=== PATIENT | female | born 1995 | race Caucasian/White ===

== ENCOUNTER 2023-07-14 12:47 | Inpatient (IN) | payer MEDICAID, SELFPAY ==
[2023-07-14 12:52] VITALS: BP 142/93; PULSE 85; RESP 12; TEMP 36.6; O2SAT 99; BMI 17.9
[2023-07-14 13:24] LABS: Basophils # 0.1 10^3/uL (0.0-0.1); Basophils % 1.7 %; Eosinophils # 0.2 10^3/uL (0.0-0.8); Eosinophils % 2.7 %; Hematocrit 41.8 % (36-47); Lymphocytes # 1.7 10^3/uL (0.8-4.8); Lymphocytes % 27.7 %; Mean Corpuscular HGB Conc 33.7 g/dL (30-55); Mean Corpuscular Hemoglobin 30.1 pg (27-33); Mean Corpuscular Volume 89.3 fl (85-98); Mean Platelet Volume 8.9 fL (7.4-10.4); Monocytes # 0.6 10^3/uL (0.2-0.9); Monocytes % 9.7 %; Neutrophils # 3.45 10^3/uL (1.8-7.7); Neutrophils % 57.9 %; Nucleated Red Blood Cells % 0 %; Platelet Count 322 10^3/cmm (157-399); Red Blood Count 4.68 10^6/uL (3.85-5.65); Red Cell Distribution Width 11.9 % (12.1-15.1); White Blood Count 5.96 10^3/uL (3.29-11.43)
--- NOTE | 2023-07-14 13:27 | ED.C_ITS ---
HPI - Psych 2 General: Chief Complaint: Psychiatric Symptoms Stated Complaint: SI Time Seen by Provider: 07/14/23 12:53 Source: patient Mode of arrival: ambulatory Limitations: no limitations History of Present Illness: 28-year-old female who states that she h as been increasingly paranoid she has been having some delusions and visual hallucinations states she has had no history of this in the past she is also had suicidal thoughts no specific plan she is not on any meds no history of SI in the past. Review of Systems 2 Const: Denies: fever(s) or chills ENMT: Denies: throat pain or dental pain Card: Denies: chest pain Resp: Denies: dyspnea GI: Denies: abdominal pain, nausea, vomiting or diarrhea Musc: Denies: neck pain or back pain Skin/Breast: Denies: rash Neuro: Denies: headache(s) Physical Exam 2 Const: COMMON NORMALS: no acute distress, patient oriented x3 and healthy appearing HENMT: COMMON NORMALS: normocephalic and atraumatic HEAD & SCALP: n ormocephalic and atraumatic Eye: COMMON NORMALS: Equal, round and reactive pupils present and EOMs intact bilaterally PUPIL: Yes Equal, round and reactive pupils present Neck/C-Spine: COMMON NORMALS: full ROM and supple Chest: COMMONS NORMALS: normal inspection of the chest Resp: COMMON NORMALS: normal respiratory effort Cardio: COMMON NORMALS: regular rate, regular rhythm and No murmurs present (Cardio) RATE: regular rate RHYTHM: regular rhythm GI: COMMON NORMALS: Normal to inspection, nondistended, normoactive bowel sounds present, Soft to palpation, non-tender and no masses PALPATION: Yes Soft to palpation Extremity: COMMON NORMALS: normal to inspection and full ROM Neuro: COMMON NORMALS: patient oriented x3, moves all extremities and no focal motor deficits Psych: COMMON NORMALS: mental status grossly normal, Normal thought process present and cooperative ATTITUDE: Yes paranoid THOUGHT PROCESS: Normal thought process present THOUGHT CONTENT: Yes Suicidality present Skin: COMMON NORMALS: no rashes or lesions noted and no wounds GENERAL SKIN EXAM: no rashes or lesions noted Course 2 Vital Signs: Vital signs: Vital Signs Temperature 97.9 F 07/14/23 12:52 Pulse Rate 85 07/14/23 12:52 Respiratory Rate 12 07/14/23 12:52 Blood Pressure 142/93 07/14/23 12:52 Pulse Oximetry 99 07/14/23 12:52 Oxygen Delivery Me thod Room Air 07/14/23 12:52 MDM - Psych Medical Decision Making Patient presents here with suicidal ideations along with acute psychosis. She is quite paranoid here no history of psychiatric issues patient was placed under 96-hour hold I spoke to the psychiatrist and will admit at this time. Medical Records I reviewed the patient's medical records. Lab Data I reviewed the patient's lab results. 07/14/23 13:11 07/14/23 13:11 Laboratory Results WBC 5.96 10^3/uL (3.29-11.43) 07/14/23 13:11 RBC 4.68 10^6/uL (3.85-5.65) 07/14/23 13:11 Hgb 14.10 g/dL (11.27-16.99) 07/14/23 13:11 Hct 41.8 % (36-47) 07/14/23 13:11 MCV 89.3 fl (85-98) 07/14/23 13:11 MCH 30.1 pg (27-33) 07/14/23 13:11 MCHC 33.7 g/dL (30-55) 07/14/23 13:11 RDW 11.9 % (12.1-15.1) L 07/14/23 13:11 Plt Count 322 10^3/cmm (157-399) 07/14/23 13:11 MPV 8.9 fL (7.4-10.4) 07/14/23 13:11 Neut % (Auto) 57.9 % 07/14/23 13:11 Lymph % (Auto) 27.7 % 07/14/23 13:11 Ponce % (Auto) 9.7 % 07/14/23 13:11 Eos % (Auto) 2.7 % 07/14/23 13:11 Baso % (Auto) 1.7 % 07/14/23 13:11 Neut # (Auto) 3.45 10^3/uL (1.8-7.7) 07/14/23 13:11 Lymph # (Auto) 1.7 10^3/uL (0.8-4.8) 07/14/23 13:11 Ponce # (Auto) 0.6 10^3/uL (0.2-0.9) 07/14/23 13:11 Eos # (Auto) 0.2 10^3/uL (0.0-0.8) 07/14/23 13:11 Baso # (Auto) 0.1 10^3/uL (0.0-0.1) 07/14/23 13:11 Nucleated RBC % (auto) 0 % 07/14/23 13:11 Nucleated RBCs # 0.0 /100WBC 07/14/23 13:11 Sodium 137 mmol/L (136-145) 07/14/23 13:11 Potassium 3.9 mmol/L (3.5-5.1) 07/14/23 13:11 Chloride 100 mmol/L (98-107) 07/14/23 13:11 Carbon Dioxide 26 mmol/L (22-29) 07/14/23 13:11 Anion Gap 14.9 (5-19) 07/14/23 13:11 BUN 13 mg/dL (6-20) 07/14/23 13:11 Creatinine 0.7 mg/dL (0.5-0.9) 07/14/23 13:11 GFR Calculation 98.3 mL/min (90-130) 07/14/23 13:11 Glucose 93 mg/dL (65-115) 07/14/23 13:11 Calculated Osmolality 284 mOsm/kg (285-295) L 07/14/23 13:11 Calcium 9.6 mg/dL (8.5-10.5) 07/14/23 13:11 Total Bilirubin 0.4 mg/dL (0.15-1.2) 07/14/23 13:11 AST 14 U/L (0-32) 07/14/23 13:11 ALT 14 U/L (0-33) 07/14/23 13:11 Alkaline Phosphatase 43 U/L (35-105) 07/14/23 13:11 Total Protein 8.1 g/dL (6.6-8.7) 07/14/23 13:11 Albumin 5.1 g/dL (3.5-5.2) 07/14/23 13:11 Globulin 3.0 g/dL (1.3-4.6) 07/14/23 13:11 Salicylates 0.8 mg/dL (3-10) L 07/14/23 13:11 Acetaminophen < 5.0 ug/mL (10-30) L 07/14/23 13:11 Ethyl Alcohol < 10 mg/dL (0-10) 07/14/23 13:11 No radiology studies performed this visit Discharge Plan Discharge Patient Disposition: Admitted As Inpatient Clinical Impression: Depression, Acute psychosis Condition: Stable Coding Level of Care Code ED Ironer Machine for Nimco Jeffrey
[2023-07-14 13:37] LABS: Acetaminophen < 5.0 ug/mL (10-30); Alanine Aminotransferase 14 U/L (0-33); Albumin Level 5.1 g/dL (3.5-5.2); Alcohol Level < 10 mg/dL (0-10); Alkaline Phosphatase 43 U/L (35-105); Anion Gap 14.9 (5-19); Aspartate Amino Transferase 14 U/L (0-32); Blood Urea Nitrogen 13 mg/dL (6-20); Calcium 9.6 mg/dL (8.5-10.5); Carbon Dioxide 26 mmol/L (22-29); Chloride 100 mmol/L (98-107); Glomerular Filtration Rate 98.3 mL/min (90-130); Glucose 93 mg/dL (65-115); Osmolality Calculated 284 mOsm/kg (285-295); Potassium 3.9 mmol/L (3.5-5.1); Salicylate 0.8 mg/dL (3-10); Sodium 137 mmol/L (136-145); Total Bilirubin 0.4 mg/dL (0.15-1.2); Total Protein 8.1 g/dL (6.6-8.7)
--- NOTE | 2023-07-14 14:21 | PC.NURSE ---
96 hour hold rights read and reviewed with patient. Patient verbalized understandings. A copy of the rights given to patient.
[2023-07-14 14:56] LABS: HCG Qualitative Urine. Negative (Negative)
[2023-07-14 15:03] LABS: Amphetamines Screen Urine Negative (Negative); Barbiturates Screen Urine Negative (Negative); Benzodiazepines Screen Urine Negative (Negative); Cocaine Screen Urine Negative (Negative); Opiate Screen Urine Negative (Negative); PCP Screen Urine Negative (Negative); THC Screen Urine Positive (Negative)
[2023-07-14 16:44] VITALS: BP 135/92; PULSE 71; RESP 16; TEMP 36.6; O2SAT 98
--- NOTE | 2023-07-14 17:29 | PC.NURSE ---
Nurse Monica in the ER gave report that patient was having avh and was paranoid that people were recording her. Patient also reported to her that she had no psych history. However, she disclosed to this RN that she had been to various places for outpatient psych treatment for short periods of time. She also said she had been hospitalized in [facility] in [place] a few years ago. She denies si/hi currently, but says she does sometimes have thoughts with no plan. However, she endorses a suicide attempt in approximately 2007 via OD and ETOH abuse. When asked if she experienced avh she said, ummm...I don't know. I hear ringing a lot, but it might just be someone's phone. Patient would often pick at her cuticles and look off into the distance when asked a question before answering several seconds later, very delayed. When asked if she had any current or hx of legal issues she replied, sure...umm...I don't wish to disclose, I guess? She denies knowing why she is here and when this RN asked her what had led her to come to the ER she paused for a long time before saying, I think things just make sense right now.
[2023-07-14 20:02] VITALS: BP 135/84; PULSE 80; RESP 16; TEMP 37.1; O2SAT 98
--- NOTE | 2023-07-15 04:03 | PC.NURSE ---
Patient Behavior Patient stated she wanted to leave and it was explained that she was on court ordered hold. She then went and pushed on the exit door and wave at staff on CSU to let her out. Re-direction worked.
[2023-07-15 06:00] VITALS: BP 139/96; PULSE 80; RESP 16; TEMP 36.6; O2SAT 99
--- NOTE | 2023-07-15 12:19 | W.PM.NPUH&PS ---
Providers/Chief Complaint Admitting Physician: Marco Siddiqui MD Chief Complaint: SI HPI NPU History of Present Illness Mandi Solano is a 28 year old female who presented to the emergency department accompanied by patient's mother with complaints of having some homicidal thoughts but denied any suicidal thoughts. The patient was admitted to the neuropsychiatric unit for further evaluation and treatment. The patient was a somewhat poor historian with initially very limited responses to open-ended questions. 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 She reports that in March 2023 she had had increased problems with her thoughts that had led her to eventually be removed from her job. She had reported that she was fortunate to not become homeless and as her family had apparently picked up the patient and moved her to [facility] where she currently resides with her mother. Patient throughout the interview had reported that she had been having unusual thoughts that appear to be philosophical questions. She reports that she had been having feelings towards another person and had questioned whether those feelings were real. She had reported that she had felt as if her thoughts were being broadcasted. She also reported that she felt as if there were was something inside of her head that was influencing her to act a certain way. She had denied having any suicidal thoughts but stated that at times she had intense visual images of hurting other people although she did not specify any particular person. She reports that she has at times struggled with falling asleep. She reports that she has been sleeping only 2 to 3 hours per night. She did not endorse any clear history of racing thoughts. She denied any history of increased goal-directed activity. She reports that she has been isolating herself. She had reported having chronic problems with socializing with others throughout her childhood and adulthood. She reported that she had felt as if she had betrayed herself but was on able to elaborate regarding this matter. She had reported that she had often questioning the reality of the statements that were being brought forth to her by some unknown entity in her head. She denies any drug or alcohol abuse. She had reported that she had used marijuana briefly a few weeks ago. Patient reports that she has been having problems with misinterpreting time and reported that she was having problems with her memory as well. Inpatient psychiatric history: Patient reports that she had been hospitalized at the age of 13 for depression. She was uncertain as to what medications or for what timeframe she was treated at but states that it was an at a facility in [facility]. Outpatient psychiatric history: None currently. She had made reference to having previously been on medications but stated that she did not remember. Allergies: Sulfa drugs Medical history: None reported Surgical history: None reported Current medications: None Legal history: None reported Drug and alcohol history: No history of inpatient or outpatient substance abuse history. He reported no history of stimulant or opiate use. Used marijuana before in the past. Family psychiatric history: Her half sister has a history of bipolar disorder. Her mother has a history of anxiety and depression per patient. Social history: Patient was born in [place] and resided with her biological parents until they . She states that she then went to live with her mother. She has 2 half siblings as her mother and father had both remarried. She reports that she had struggles in school both socially and academically. Despite this, she reports having obtained her diploma and earned a college degree in cardiac rehab dilatation. She had reported that he worked several years in this field having worked 2 years in [place] and having worked after that in [place] until March 2023. She is currently unemployed. She did not clearly identify her sexual preference. She reports she has never been and has no children. She reports having few friends. She did not endorse any history of abuse. Meds NPU Home Medications Medication Instructions Recorded Confirmed Last Taken Type No Known Home Medications 07/14/23 07/14/23 Unknown History Allergies Allergy/AdvReac Type Severity Reaction Status Date / Time Sulfa (Sulfonamide Allergy ALGY-Rash Verified 07/14/23 12:51 Antibiotics) Mental Status Exam MSE Comments: Patient is a casually dressed thin white female with good eye contact with no evidence of any abnormal involuntary motor movements tics or tremors appreciated. She. In moderate to severe distress. There was some evidence of psychomotor slowing. Her speech was monotone in quality and decreased in rate with very significant speech latency. Her gait appeared within normal limits. Her hygiene was fair. Her mood was described as okay. Her affect was blunted with occasional periods of tearfulness spontaneously. Thought content: She endorsed homicidal ideation with no particular person targeted. She denied any suicidal ideation. There was significant poverty of content. There is also evidence of poverty speech overall. She endorsed thought broadcasting. She did appear to be responding to internal stimuli. She endorsed auditory hallucinations. She had stopped and pause during questioning sometimes and would ask some existential question to the keno writer/runner of this note that was completely unrelated to the questions during the interview. She was alert and oriented to person place and time. Her registration of words was 3 out of 3 immediate but 0 out of 3 after 5 minutes. Her insight is impaired. Her judgment is poor. Her impulse control appeared limited. Vitals/I&O/Wt Last Vital Signs Temp 97.8 F 07/15/23 06:00 Pulse 80 07/15/23 06:00 Resp 16 07/15/23 06:00 BP 139/96 07/15/23 06:00 Pulse Ox 99 07/15/23 06:00 O2 Del Method Room Air 07/14/23 20:02 Weight last 48 hrs Weight 50.462 kg Data NPU 07/14/23 13:11 07/14/23 13:11 A&P Assessment and plan (1) Unspecified psychosis: Plan Functioning over the last 3 months who presents with psychosis currently not using illicit drugs or alcohol. She was agreeable to treatment with Abilify to target psychosis. 1. Encourage individual, group and milieu therapy. 2. Recommend sober living treatment at the highest level of care to which the patient is willing to commit. 3. Continue q-15 minute checks for safety.? 4.? Abilify 5mg daily. 5.? Will attempt to gather collateral information. Involuntary Hold Information 96 Hour Hold: 96 Hour Involuntary Admission: Yes 96 Hour Hold Ending Date: 07/20/23 96 Hour Hold Ending Time: 13:40 Attestations NPU Medical Necessity Statement*: Inpatient hospitalization is medically necessary and deemed to be the clinically appropriate intervention at this time. Patient will be started on medications and these medications will be titrated as clinically indicated. Patient will be in the hospital for at least 2 midnights. The patient's likely length of stay is 5 to 7 days. Coding Level of Care Code Acute Code for Chg Fwd Diagnoses Unspecified psychosis F29
--- NOTE | 2023-07-15 13:59 | PC.NURSE ---
Pt just tried to follow a staff member out of the unit.
--- NOTE | 2023-07-15 13:59 | PC.NURSE ---
As this nurse was leaving the unit pt sprinted down the guallpa to attempt to elope. This song writer spoke with the charge nurse and pt will be moved to the south guallpa away from the exit doors.
[2023-07-15 14:00] VITALS: BP 125/85; PULSE 85; RESP 18; TEMP 37.1; O2SAT 99
[2023-07-15] MEDS: ARIPiprazole 10 mg Tablet 5 MG PO (15:42)
--- NOTE | 2023-07-15 15:44 | PC.NURSE ---
1544 Pt was administered her 5mg Abilify PO. Pt has visitors on the unit and her family talked her into taking the medication.
--- NOTE | 2023-07-15 20:27 | PC.NURSE ---
SITTING UP IN BED, PT STATES , I WAS JUST GETTING READY TO COME TALK TO YOU, I TOOK THAT ABILIFY AND IT ITS MAKING ME SUPER ANXIOUS WHAT SHOULD I DO. THIS RN EDUCATED PT THAT TAKING NEW MEDICATIONS CAN MAKE YOU FEEL ANXIOUS BUT BEING THAT SHE JUST TOOK IT A FEW HOURS AGO THAT ITS PROBABLY NOT THE MEDICATION. PT WAS OFFERED PRN MEDICATIONS TO REDUCE ANXIETY BUT PT DECLINES STATING IT PROBABLY WON'T HELP AND I DON'T LIKE TAKING MEDICINE. PT IS OBSERVED TO HAVE ANXIETY AND RATES ANXIETY 5/10 AND DEPRESSION 0/10. DENIES PAIN, SI/HI AND AVH AT THIS TIME. PT IS OBSERVED ROCKING BACK AND FORTH IN HER BED. PT HAS A FLAT AFFECT AND IS GUARDED. ALL QUESTIONS ANSWERED AND SUPPORT IS VOICED.
[2023-07-15 22:00] VITALS: BP 138/91; PULSE 110; RESP 16; TEMP 36.7; O2SAT 97
[2023-07-16 06:00] VITALS: BP 122/83; PULSE 102; RESP 16; TEMP 37.1; O2SAT 98
[2023-07-16] MEDS: ARIPiprazole 10 mg Tablet 5 MG PO (08:11)
--- NOTE | 2023-07-16 13:42 | P.NPUPN_ITS ---
Subjective NPU 2 Subjective: Patient presented today reporting this to fairly with the initiation of the Abilify 5 mg. She reports feeling fairly tired when it was administered and we discussed the possibility of changing the dose to bedtime and possibly increasing the medication. She was very focused on the possibility of discharge. We discussed the reported improvement she had and the fact that she has some affinity for the special gifts that have come with this schizophrenia and that she calls it. We discussed connecting with her family to get some collateral information on what baseline has looked like recently. We discussed the 96-hour hold process. Mental Status Exam 2 MSE Comments: This is an underweight versus cachectic white female in hospital scrubs with limited grooming and eye contact. No abnormal movements except for mild psychomotor retardation. She was cooperative with exam in mild to moderate distress. Her speech was monotone in quality and decreased in rate with some speech latency. Her gait appeared within normal limits. Her hygiene was fair. Her mood was described as a little better. Her affect was blunted and slightly subdued. Thought process was mostly organized. Thought content: She endorsed homicidal ideation with no particular person targeted. She denied any suicidal ideation. There was significant poverty of content. She endorsed thought broadcasting. She did appear to be responding to internal stimuli. She endorsed auditory hallucinations. She was alert and oriented to person place and time. Her registration of words was 3 out of 3 immediate but 0 out of 3 after 5 minutes. Her insight is impaired. Her judgment is poor. Her impulse control appeared limited. Vitals/I&O/Wt Last Vital Signs Temp 98.7 F 07/16/23 06:00 Pulse 102 H 07/16/23 06:00 Resp 16 07/16/23 06:00 BP 122/83 07/16/23 06:00 Pulse Ox 98 07/16/23 06:00 O2 Del Method Room Air 07/16/23 06:00 Data NPU 07/14/23 13:11 07/14/23 13:11 A&P Assessment and plan (1) Unspecified psychosis: Plan Functioning over the last 3 months who presents with psychosis currently not using illicit drugs or alcohol. She was agreeable to treatment with Abilify to target psychosis. 1. Encourage individual, group and milieu therapy. 2. Recommend sober living treatment at the highest level of care to which the patient is willing to commit. 3. Continue q-15 minute checks for safety.? 4.? Abilify 5mg daily. Consider increasing dose to 10 mg and switching to bedtime. 5.? Will attempt to gather collateral information. Involuntary Hold Information 2 96 Hour Hold: 96 Hour Involuntary Admission: Yes 96 Hour Hold Ending Date: 07/20/23 96 Hour Hold Ending Time: 13:40 Attestations NPU 2 Medical Necessity Statement*: Inpatient hospitalization is medically necessary and deemed to be the clinically appropriate intervention at this time. Patient will be started on medications and these medications will be titrated as clinically indicated. The patient's likely length of stay is 4-6 days. Coding Level of Care Code Acute Code for Chg Fwd Diagnoses Unspecified psychosis F29
[2023-07-16 14:00] VITALS: BP 126/84; PULSE 77; RESP 16; TEMP 37.2; O2SAT 97
--- NOTE | 2023-07-16 20:04 | PC.NURSE ---
SITTING ON BED PT IS NOTED TO BE WITHDRAWN AND HAS A FLAT AFFECT. PT STATES I DON'T KNOW WHY I CAN'T LEAVE AND THE DIDN'T SOUND PROMISING WHEN I TALKED TO HIM. PT WAS EDUCATED ON THE 96 HOUR HOLD AND THAT SHE CAME IN VERY PARANOID HEARING VOICES. PT STATED YEAH BUT I'M FINE NOW. PT EDUCATED THAT WILL WANT TO MONITOR HER WHILE STARTING THE ABILIFY. PT STILL IS UPSET DUE TO BEING HERE BECAUSE SHE BELIEVES SHE ISN'T SICK. I'M FINE. PT DENIES SI/HI AND AVH AT THIS TIME, SHE IS GUARDED WITH STAFF AND CONTINUES TO DEMAND TO LEAVE AMA, PT WAS AGAIN EDUCATED THAT SHE IS ON A 96 HOUR HOLD AND SHE CAN NOT LEAVE AMA. RATES ANXIETY AND DEPRESSION 0/10. DENIES PAIN. ALL QUESTIONS WERE ANSWRED AND SUPPORT VOICED. PT IS OBSERVED TO HAVE DELUSIONS AND CONTINUES TO WORK HERSELF UP DUE TO NOT BEING ABLE TO LEAVE AMA. PT IS NOT ABLE TO COMPREHEND WHAT THIS RN IS TELLING HER.
[2023-07-16 20:14] VITALS: BP 125/87; PULSE 93; RESP 16; TEMP 36.9; O2SAT 96
[2023-07-17 06:00] VITALS: BP 119/69; PULSE 79; RESP 16; TEMP 37.1; O2SAT 97
--- NOTE | 2023-07-17 07:43 | P.NPUPN_ITS ---
Subjective NPU 2 Subjective: Patient presented today reporting that she is feeling okay. She is taking the medication as prescribed but continues to be very resistant to taking medication. We discussed the Abilify at [facility] as well as [facility] as 1 and 2-month options respectively to avoid the daily grind of medication taking. She continues to focus on discharge and was very focused on wanting to get back to work and possibly reenrolled in school and we discussed trying to focus on her mental health and mental stability before adding additional things on her plate. Mental Status Exam 2 MSE Comments: This is an underweight versus cachectic white female in hospital scrubs with limited grooming and eye contact. No abnormal movements except for mild psychomotor retardation. She was cooperative with exam in mild to moderate distress. Her speech was monotone in quality and decreased in rate with some speech latency. Her gait appeared within normal limits. Her hygiene was fair. Her mood was described as a little better. Her affect was blunted and slightly subdued. Thought process was mostly organized. Thought content: She denied homicidal ideation. She denied any suicidal ideation. There was significant poverty of content. She endorsed thought broadcasting. She did appear to be responding to internal stimuli. She endorsed auditory hallucinations. She was alert and oriented to person place and time. Her registration of words was 3 out of 3 immediate but 0 out of 3 after 5 minutes. Her insight is impaired. Her judgment is poor. Her impulse control appeared limited. Vitals/I&O/Wt Last Vital Signs Temp 98.7 F 07/17/23 06:00 Pulse 79 07/17/23 06:00 Resp 16 07/17/23 06:00 BP 119/69 07/17/23 06:00 Pulse Ox 97 07/17/23 06:00 O2 Del Method Room Air 07/17/23 06:00 Data NPU 07/14/23 13:11 07/14/23 13:11 A&P Assessment and plan (1) Unspecified psychosis: Plan Functioning over the last 3 months who presents with psychosis currently not using illicit drugs or alcohol. She was agreeable to treatment with Abilify to target psychosis. 1. Encourage individual, group and milieu therapy. 2. Recommend sober living treatment at the highest level of care to which the patient is willing to commit. 3. Continue q-15 minute checks for safety.? 4.? Abilify 5mg daily. Give 5 mg p.o. twice daily today and switch to 10 mg p.o. nightly tomorrow. 5.? Will attempt to gather collateral information. 6. Filed for 21-day hold but will evaluate each day to see if hearing is necessary. Involuntary Hold Information 2 96 Hour Hold: 96 Hour Involuntary Admission: Yes 96 Hour Hold Ending Date: 07/20/23 96 Hour Hold Ending Time: 13:40 Attestations NPU 2 Medical Necessity Statement*: Inpatient hospitalization is medically necessary and deemed to be the clinically appropriate intervention at this time. Patient will be started on medications and these medications will be titrated as clinically indicated. The patient's likely length of stay is 3-5 days. Coding Level of Care Code Acute Code for Chg Fwd Diagnoses Unspecified psychosis F29
[2023-07-17] MEDS: ARIPiprazole 10 mg Tablet 5 MG PO ×2 (08:04→20:23)
--- NOTE | 2023-07-17 12:21 | PC.NURSE ---
Patient observed trying to stick a pen into the lock for the elevator on the [facility] hallway. Patient was asked to hand staff the pen and she taunted the staff, throwing it into the air and saying, okay...catch! This RN asked the patient why she was attempting to pick the lock of the elevator to which she replied, I want to leave. She then went on to say she did not believe it was logistically right for her to be here right now and that she wanted to take care of things outside of here. This RN then asked what she would plan to do if she were to leave right now. She stated, I would need to go to my apartment, get all of my things, then find a job and a car. We did discuss how staying here would allow her to better establish a plan and keep her from being homeless, but she continued to reiterate that she would rather leave. Patient was told she would need to discuss her concerns with the doctor and she said, ya, but the doctor will just switch around what I said. That trust has already been broken. Patient was reassured that staff had her best interests in mind. She then clenched her jaw and stormed off to her room.
[2023-07-17 14:00] VITALS: BP 130/71; PULSE 96; RESP 18; TEMP 37.2; O2SAT 99
[2023-07-17] MEDS: hyDROXYzine 25 mg Capsule 50 MG PO (18:00)
--- NOTE | 2023-07-17 19:48 | PC.NURSE ---
IN BED SITTING UP PLAYING WITH RUBICS CUBE. PT IS NOTED TO HAVE FLAT AFFECT AND IS UPSET DUE TO BEING SERVED 21 DAY PAPERS. PT WAS EDUCATED ON INCREASED DOSE OF ABILIFY TONIGHT. PT STATES SHE DOES NOT WANT TO TAKE BUT SHE WILL. DENIES SI/HI AND AVH AT THIS TIME. RATES ANXIETY AND DEPRESSION 0/10. PT HAS LIMITED EYE CONTACT AND IS DISTRACTED WITH FIDGETING WITH RUBRICS CUBE. PT WAS ASSURED THAT SHE CAN COME AND SPEAK TO STAFF IF NEEDED, PT SAID OK THEN HUNG HER HEAD DOWN. ALL QUESTIONS ANSWERED AND SUPPORT VOICED
[2023-07-17 20:46] VITALS: BP 137/90; PULSE 66; RESP 16; TEMP 36.9; O2SAT 99
[2023-07-18 06:00] VITALS: BP 137/60; PULSE 69; RESP 16; TEMP 37; O2SAT 98
[2023-07-18 14:00] VITALS: BP 110/61; PULSE 64; RESP 15; TEMP 37.2; O2SAT 97
--- NOTE | 2023-07-18 14:09 | P.NPUPN_ITS ---
Subjective NPU 2 Subjective: Patient presented today reporting that she is feeling better. She continues to be fairly resistant to the idea of medication long-term and continues to be mostly focused on getting a job and going back to school. Her new focus today was that she needed to get back to her house because she has to move. She did report that her parents are aware that she needs to move and that they were planning on helping her. We agreed we would talk with parents tomorrow about what the plan is and if there are any concerns that she needs to be discharged with that plan to be executed. Did have a chance to speak with mom and mom reported that she had been doing really poorly and was very psychotic and she identifies the improvement with the Abilify and agrees that an injection would go a long way to keeping things stable. Mental Status Exam 2 MSE Comments: This is an underweight versus cachectic white female in hospital scrubs with limited grooming and eye contact. No abnormal movements except for mild psychomotor retardation. She was cooperative with exam in mild to moderate distress. Her speech was monotone in quality and decreased in rate with some speech latency. Her gait appeared within normal limits. Her hygiene was fair. Her mood was described as a little better. Her affect was blunted and slightly subdued. Thought process was mostly organized. Thought content: She denied homicidal ideation. She denied any suicidal ideation. There was significant poverty of content. She endorsed thought broadcasting. She did appear to be responding to internal stimuli. She endorsed auditory hallucinations. She was alert and oriented to person place and time. Her registration of words was 3 out of 3 immediate but 0 out of 3 after 5 minutes. Her insight is impaired. Her judgment is poor. Her impulse control appeared limited. Vitals/I&O/Wt Last Vital Signs Temp 98.6 F 07/18/23 06:00 Pulse 69 07/18/23 06:00 Resp 16 07/18/23 06:00 BP 137/60 07/18/23 06:00 Pulse Ox 98 07/18/23 06:00 O2 Del Method Room Air 07/18/23 06:00 Data NPU 07/14/23 13:11 07/14/23 13:11 A&P Assessment and plan (1) Unspecified psychosis: Plan Functioning over the last 3 months who presents with psychosis currently not using illicit drugs or alcohol. She was agreeable to treatment with Abilify to target psychosis. 1. Encourage individual, group and milieu therapy. 2. Recommend sober living treatment at the highest level of care to which the patient is willing to commit. 3. Continue q-15 minute checks for safety.? 4.? Abilify 5mg daily. Gave 5 mg p.o. twice daily today and switched to 10 mg p.o. nightly. Continue to discuss Abilify Maintena or Abilify Asimtufii 5.? Will attempt to gather collateral information. 6. Filed for 21-day hold but will evaluate each day to see if hearing is necessary. Involuntary Hold Information 2 96 Hour Hold: 96 Hour Involuntary Admission: Yes 96 Hour Hold Ending Date: 07/20/23 96 Hour Hold Ending Time: 13:40 Attestations NPU 2 Medical Necessity Statement*: Inpatient hospitalization is medically necessary and deemed to be the clinically appropriate intervention at this time. Patient will be started on medications and these medications will be titrated as clinically indicated. The patient's likely length of stay is 2-4 days. Unless we go forward with the 21-day hold. Coding Level of Care Code Acute Code for Chg Fwd Diagnoses Unspecified psychosis F29
[2023-07-18 20:02] VITALS: BP 126/79; PULSE 75; RESP 18; TEMP 36.8; O2SAT 99
[2023-07-18] MEDS: ARIPiprazole 10 mg Tablet PO (20:07)
[2023-07-19 06:00] VITALS: BP 109/63; PULSE 69; RESP 16; TEMP 37; O2SAT 98; BMI 18.3
--- NOTE | 2023-07-19 08:42 | P.NPUPN_ITS ---
Subjective NPU 2 Subjective: Patient presented today reporting that she was doing fine. We continue to discuss the long-acting injectable and how that would make us feel significantly better in knowing she would continue to be well and get better. She reports she would consider it. We discussed that she has a hearing tomorrow at 11 and that we need to figure out a plan and where her family feels she is from the standpoint of baseline before that hearing. We discussed the treatment team being here tomorrow to help her get appropriate follow-up. Mental Status Exam 2 MSE Comments: This is an underweight versus cachectic white female in hospital scrubs with limited grooming and eye contact. No abnormal movements except for mild psychomotor retardation. She was cooperative with exam in mild to moderate distress. Her speech was monotone in quality and decreased in rate with some speech latency. Her gait appeared within normal limits. Her hygiene was fair. Her mood was described as a little better. Her affect was blunted and slightly subdued. Thought process was mostly organized. Thought content: She denied homicidal ideation. She denied any suicidal ideation. There was significant poverty of content. She endorsed thought broadcasting. She did appear to be responding to internal stimuli. She endorsed auditory hallucinations. She was alert and oriented to person place and time. Her registration of words was 3 out of 3 immediate but 0 out of 3 after 5 minutes. Her insight is impaired. Her judgment is poor. Her impulse control appeared limited. Vitals/I&O/Wt Last Vital Signs Temp 98.6 F 07/19/23 06:00 Pulse 69 07/19/23 06:00 Resp 16 07/19/23 06:00 BP 109/63 07/19/23 06:00 Pulse Ox 98 07/19/23 06:00 O2 Del Method Room Air 07/19/23 06:00 Weight last 48 hrs Weight 51.528 kg Weight 51.256 kg Data NPU 07/14/23 13:11 07/14/23 13:11 A&P Assessment and plan (1) Unspecified psychosis: Plan Functioning over the last 3 months who presents with psychosis currently not using illicit drugs or alcohol. She was agreeable to treatment with Tosin to target psychosis. 1. Encourage individual, group and milieu therapy. 2. Recommend sober living treatment at the highest level of care to which the patient is willing to commit. 3. Continue q-15 minute checks for safety.? 4.? Abilify 5mg daily. Gave 5 mg p.o. twice daily today and switched to 10 mg p.o. nightly. Continue to discuss Abilify Maintena or Abilify Asimtufii 5.? Will attempt to gather collateral information. 6. Filed for 21-day hold but will evaluate each day to see if hearing is necessary. Involuntary Hold Information 2 96 Hour Hold: 96 Hour Involuntary Admission: Yes 96 Hour Hold Ending Date: 07/20/23 96 Hour Hold Ending Time: 13:40 Attestations NPU 2 Medical Necessity Statement*: Inpatient hospitalization is medically necessary and deemed to be the clinically appropriate intervention at this time. Patient will be started on medications and these medications will be titrated as clinically indicated. The patient's likely length of stay is 2-4 days. Unless we go forward with the 21-day hold. Coding Level of Care Code Acute Code for Chg Fwd Diagnoses Unspecified psychosis F29
[2023-07-19 14:00] VITALS: BP 118/82; PULSE 77; RESP 16; O2SAT 100
[2023-07-19 19:44] VITALS: BP 120/70; PULSE 72; RESP 16; TEMP 36.8; O2SAT 100
--- NOTE | 2023-07-19 20:03 | PC.NURSE ---
SITTING IN BED. PT IS NOTED TO PARTICIPATE MORE WITH ASSESSMENT AND HAS A BRIGHTER AFFECT. PT STATES SHE WANTS TO GO TO HER COURT DATE TOMORROW, WILL NOTIFY DAY SHIFT IN AM TO ARRANGE. DENIES SI/HI AND AVH AT THIS TIME. RATES ANXIETY AND DEPRESSION 0/10. DENIES PAIN. DOES STATES SHE HAS MUSCLE TIGHTNESS. RN EDUCATED PT THAT IT COULD BE A SIDE EFFECT OF THE ABILIFY AND RN CAN GIVE HER COGENTIN IF NEEDED. PT THEN STATED OH NO MY MUSCLES ARE USUALLY TIGHT AND I'VE BEEN SITTING ALOT SO THATS PROBABLY WAHT IT IS. PT DECLINES COGENTIN AT THIS TIME AND ASSURES RN THAT IF IT GETS WORSE I WILL LET YOU KNOW. ALL QUESTIONS WERE ANSWERED AND SUPPORT WAS VOICED.
[2023-07-19] MEDS: ARIPiprazole 10 mg Tablet PO (20:36)
[2023-07-20 06:00] VITALS: BP 110/57; PULSE 66; RESP 16; TEMP 36.9; O2SAT 98
--- NOTE | 2023-07-20 08:18 | P.NPUPN_ITS ---
Subjective NPU 2 Subjective: Patient presented today reporting she is feeling better. Staff still report slow but steady improvement. Spoke with family and they feel positive about her progression and agree that if she did take the injection that they feel like they would be able to help her manage in this convalescent. They identified that she was going to be moving here with them so that we will be able to provide the support she will need and they can help her avoid her current drive to immediately get back to work and possibly go to school and focus on recovery. She denied any side effects to the medication. We discussed the likelihood of discharge in the morning, we discontinued the 21-day hold hearing and she signed into the hospital. Mental Status Exam 2 MSE Comments: This is an underweight versus cachectic white female in hospital scrubs with limited grooming and eye contact. No abnormal movements except for mild psychomotor retardation. She was cooperative with exam in mild to moderate distress. Her speech was monotone in quality and decreased in rate with some speech latency. Her gait appeared within normal limits. Her hygiene was fair. Her mood was described as a little better. Her affect was blunted and slightly subdued. Thought process was mostly organized. Thought content: She denied homicidal ideation. She denied any suicidal ideation. She endorsed reduction in thought broadcasting. She did not appear to be responding to internal stimuli. She endorsed diminishing auditory hallucinations. She was alert and oriented to person place and time. Her insight is limited. Her judgment is poor. Her impulse control appeared limited. Vitals/I&O/Wt Last Vital Signs Temp 98.4 F 07/20/23 06:00 Pulse 66 07/20/23 06:00 Resp 16 07/20/23 06:00 BP 110/57 07/20/23 06:00 Pulse Ox 98 07/20/23 06:00 O2 Del Method Room Air 07/20/23 06:00 Weight last 48 hrs Weight 51.528 kg Weight 51.256 kg Data NPU 07/14/23 13:11 07/14/23 13:11 A&P Assessment and plan (1) Unspecified psychosis: Plan Functioning over the last 3 months who presents with psychosis currently not using illicit drugs or alcohol. She was agreeable to treatment with Tosin to target psychosis. 1. Encourage individual, group and milieu therapy. 2. Recommend sober living treatment at the highest level of care to which the patient is willing to commit. 3. Continue q-15 minute checks for safety.? 4.? Abilify 5mg daily. Gave 5 mg p.o. twice daily today and switched to 10 mg p.o. nightly. Initiate Abilify Maintena 400 mg IM today. 5.? Will attempt to gather collateral information. Involuntary Hold Information 2 96 Hour Hold: 96 Hour Involuntary Admission: Yes 96 Hour Hold Ending Date: 07/20/23 96 Hour Hold Ending Time: 13:40 Attestations NPU 2 Medical Necessity Statement*: Inpatient hospitalization is medically necessary and deemed to be the clinically appropriate intervention at this time. Patient will be started on medications and these medications will be titrated as clinically indicated. The patient's likely length of stay is 1 to 3 days. Coding Level of Care Code Acute Code for Chg Fwd Diagnoses Unspecified psychosis F29
[2023-07-20] MEDS: ARIPiprazole Maintena 400 MG IM (12:52)
[2023-07-20 14:00] VITALS: BP 110/66; PULSE 70; RESP 20; TEMP 36.9; O2SAT 96
[2023-07-20 19:52] VITALS: BP 102/63; PULSE 63; RESP 18; TEMP 36.7; O2SAT 97
[2023-07-21 06:00] VITALS: BP 92/56; PULSE 57; RESP 15; TEMP 36.9; O2SAT 96
--- NOTE | 2023-07-21 12:04 | W.PM.NPUDCS ---
Diagnoses at Discharge Discharge Diagnosis (1) Unspecified psychosis: Status: Acute Reason for Visit Reason for Visit: SI Brief History: History of Present Illness Mandi Solano is a 28 year old female who presented to the emergency department accompanied by patient's mother with complaints of having some homicidal thoughts but denied any suicidal thoughts. The patient was admitted to the neuropsychiatric unit for further evaluation and treatment. The patient was a somewhat poor historian with initially very limited responses to open-ended questions. 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 She reports that in March 2023 she had had increased problems with her thoughts that had led her to eventually be removed from her job. She had reported that she was fortunate to not become homeless and as her family had apparently picked up the patient and moved her to [facility] where she currently resides with her mother. Patient throughout the interview had reported that she had been having unusual thoughts that appear to be philosophical questions. She reports that she had been having feelings towards another person and had questioned whether those feelings were real. She had reported that she had felt as if her thoughts were being broadcasted. She also reported that she felt as if there were was something inside of her head that was influencing her to act a certain way. She had denied having any suicidal thoughts but stated that at times she had intense visual images of hurting other people although she did not specify any particular person. She reports that she has at times struggled with falling asleep. She reports that she has been sleeping only 2 to 3 hours per night. She did not endorse any clear history of racing thoughts. She denied any history of increased goal-directed activity. She reports that she has been isolating herself. She had reported having chronic problems with socializing with others throughout her childhood and adulthood. She reported that she had felt as if she had betrayed herself but was on able to elaborate regarding this matter. She had reported that she had often questioning the reality of the statements that were being brought forth to her by some unknown entity in her head. She denies any drug or alcohol abuse. She had reported that she had used marijuana briefly a few weeks ago. Patient reports that she has been having problems with misinterpreting time and reported that she was having problems with her memory as well. Inpatient psychiatric history: Patient reports that she had been hospitalized at the age of 13 for depression. She was uncertain as to what medications or for what timeframe she was treated at but states that it was an at a facility in [facility]. Outpatient psychiatric history: None currently. She had made reference to having previously been on medications but stated that she did not remember. Allergies: Sulfa drugs Medical history: None reported Surgical history: None reported Current medications: None Legal history: None reported Drug and alcohol history: No history of inpatient or outpatient substance abuse history. He reported no history of stimulant or opiate use. Used marijuana before in the past. Family psychiatric history: Her half sister has a history of bipolar disorder. Her mother has a history of anxiety and depression per patient. Social history: Patient was born in [place] and resided with her biological parents until they . She states that she then went to live with her mother. She has 2 half siblings as her mother and father had both remarried. She reports that she had struggles in school both socially and academically. Despite this, she reports having obtained her diploma and earned a college degree in cardiac rehab dilatation. She had reported that he worked several years in this field having worked 2 years in [place] and having worked after that in [place] until March 2023. She is currently unemployed. She did not clearly identify her sexual preference. She reports she has never been and has no children. She reports having few friends. She did not endorse any history of abuse. Hospital Course Hospital Course She slowly acclimated to the individual, group and milieu therapies provided.? She was started on her Abilify 5 mg which was titrated to 10 mg p.o. nightly for her psychosis. She was having some improvement. We did initiate Abilify Maintena 400 mg IM and she was given 13 more days of oral medication for the transition. We worked with her family to ensure adequate supports after discharge secondary to her level of impairment. She worked with the social work team for appropriate discharge planning and aftercare. She was able contract for safety outside the hospital prior to discharge.? During the hospitalization, patient had routine laboratory studies which were within normal limits except for few outliers.? Additionally there was a general medical evaluation which was also within normal limits and revealed no new acute processes. At the time of discharge, she denied lethality and her psychosis was improving.? Mood and anxiety were well managed.? Patient endorsed a plan to avoid all drugs of abuse and follow-up with the aftercare recommendations of the treatment team.? Patient was evaluated and deemed to be absent credible lethality, and had achieved the maximum benefit from an inpatient hospitalization, so was discharged.? Involuntary Hold Information 96 Hour Hold: 96 Hour Involuntary Admission: Yes 96 Hour Hold Ending Date: 07/20/23 96 Hour Hold Ending Time: 13:40 Mental Status Exam MSE Comments: This is an underweight versus cachectic white female in hospital scrubs with limited grooming and eye contact. No abnormal movements except for mild psychomotor retardation. She was cooperative with exam in mild distress. Her speech was monotone in quality and decreased in rate with some speech latency. Her gait appeared within normal limits. Her hygiene was fair. Her mood was described as a little better. Her affect was blunted and slightly subdued. Thought process was mostly organized. Thought content: She denied homicidal ideation. She denied any suicidal ideation. She endorsed reduction in thought broadcasting. She did not appear to be responding to internal stimuli. She endorsed diminishing auditory hallucinations. She was alert and oriented to person place and time. Her insight is limited. Her judgment is poor. Her impulse control appeared limited. Discharge Data Studies Completed and Pending: Laboratory Results WBC 5.96 10^3/uL (3.2 9-11.43) 07/14/23 13:11 RBC 4.68 10^6/uL (3.8 5-5.65) 07/14/23 13:11 Hgb 14.10 g/dL (11.27 -16.99) 07/14/23 13:11 Hct 41.8 % (36-47) 07/14/23 13:11 MCV 89.3 fl (85-98) 07/14/23 13:11 MCH 30.1 pg (27-33) 07/14/23 13:11 MCHC 33.7 g/dL (30-55) 07/14/23 13:11 RDW 11.9 % (12.1-15.1 ) L 07/14/23 13:11 Plt Count 322 10^3/cmm (157 -399) 07/14/23 13:11 MPV 8.9 fL (7.4-10.4) 07/14/23 13:11 Neut % (Auto) 57.9 % 07/14/23 13:11 Lymph % (Auto) 27.7 % 07/14/23 13:11 Clinch % (Auto) 9.7 % 07/14/23 13:11 Eos % (Auto) 2.7 % 07/14/23 13:11 Baso % (Auto) 1.7 % 07/14/23 13:11 Neut # (Auto) 3.45 10^3/uL (1.8 -7.7) 07/14/23 13:11 Lymph # (Auto) 1.7 10^3/uL (0.8- 4.8) 07/14/23 13:11 Clinch # (Auto) 0.6 10^3/uL (0.2- 0.9) 07/14/23 13:11 Eos # (Auto) 0.2 10^3/uL (0.0- 0.8) 07/14/23 13:11 Baso # (Auto) 0.1 10^3/uL (0.0- 0.1) 07/14/23 13:11 Nucleated RBC % (a uto) 0 % 07/14/23 13:11 Nucleated RBCs # 0.0 /100WBC 07/14/23 13:11 Sodium 137 mmol/L (136-1 45) 07/14/23 13:11 Potassium 3.9 mmol/L (3.5-5 .1) 07/14/23 13:11 Chloride 100 mmol/L (98-10 7) 07/14/23 13:11 Carbon Dioxide 26 mmol/L (22-29) 07/14/23 13:11 Anion Gap 14.9 (5-19) 07/14/23 13:11 BUN 13 mg/dL (6-20) 07/14/23 13:11 Creatinine 0.7 mg/dL (0.5-0. 9) 07/14/23 13:11 GFR Calculation 98.3 mL/min (90-1 30) 07/14/23 13:11 Glucose 93 mg/dL (65-115) 07/14/23 13:11 Calculated Osmolal ity 284 mOsm/kg (285- 295) L 07/14/23 13:11 Calcium 9.6 mg/dL (8.5-10 .5) 07/14/23 13:11 Total Bilirubin 0.4 mg/dL (0.15-1 .2) 07/14/23 13:11 AST 14 U/L (0-32) 07/14/23 13:11 ALT 14 U/L (0-33) 07/14/23 13:11 Alkaline Phosphata se 43 U/L (35-105) 07/14/23 13:11 Total Protein 8.1 g/dL (6.6-8.7 ) 07/14/23 13:11 Albumin 5.1 g/dL (3.5-5.2 ) 07/14/23 13:11 Globulin 3.0 g/dL (1.3-4.6 ) 07/14/23 13:11 HCG, Qual Negative (Negati ve) 07/14/23 13:09 Salicylates 0.8 mg/dL (3-10) L 07/14/23 13:11 Urine Opiates Scre en Negative ng/mL (N egative) 07/14/23 13:09 Acetaminophen < 5.0 ug/mL (10-3 0) L 07/14/23 13:11 Ur Barbiturates Sc reen Negative ng/mL (N egative) 07/14/23 13:09 Ur Phencyclidine S crn Negative ng/mL (N egative) 07/14/23 13:09 Ur Amphetamines Sc reen Negative ng/mL (N egative) 07/14/23 13:09 U Benzodiazepines Scrn Negative ng/mL (N egative) 07/14/23 13:09 Urine Cocaine Scre en Negative ng/mL (N egative) 07/14/23 13:09 U Marijuana (THC) Screen Positive ng/mL (N egative) H 07/14/23 13:09 Ethyl Alcohol < 10 mg/dL (0-10) 07/14/23 13:11 Vitals: Last Vital Signs Temp 98.4 F 07/21/23 06:00 Pulse 57 L 07/21/23 06:00 Resp 15 07/21/23 06:00 BP 92/56 07/21/23 06:00 Pulse Ox 96 07/21/23 06:00 O2 Del Method Room Air 07/21/23 06:00 Discharge Plan Discharge Patient Disposition: Home Condition: Stable Prescriptions: New Abilify Maintena 400 mg suspension,extended rel recon 400 mg IM Q28D 28 Days Qty: 1 1RF Discharge Orders: Discharge Order (Routine); Ordered 07/21/23 Ordered By: Heath Valdes Referrals: [facility] [Outside] - 07/27/23 9:00 am (Initial assessment for services with Bart Camilo) Discharge Diet: Regular Discharge Activity: Resume usual activity Patient Instructions: Depression, Aripiprazole (By mouth), Aripiprazole (By injection) (Tosin [place] Dual-Chambered..., Schizophrenia (DC), Opioid Safety Discharge Attestations NPU Time Spent in Discharge Care*: less than 30 min Specific Discharge Activities: Specific discharge activities: educating patient, discussing with casework specialist/social workers/dc planners, documenting/other paperwork and evaluating patient/reviewing data Coding Level of Care Code Acute Code for Chg Fwd Diagnoses Unspecified psychosis F29
[2023-07-21 12:05] VITALS: BP 92/56; PULSE 57; RESP 15; TEMP 36.9; O2SAT 96
== END 2023-07-21 13:01 | disposition home or self-care (01) | DRG 885 ==
LOC: ER 13:42 → NP 16:41
PROVIDERS: Admitting Provider Psychiatry & Neurology Psychiatry; Emergency Provider Emergency Medicine; Visit Provider Psychiatry & Neurology Psychiatry
DX: F23 Brief psychotic disorder (principal)
CPT/HCPCS: 36415; 80053; 80306; 80307; 81025; 85025; 96372; 97150; 97165; 99285

== ENCOUNTER → 2024-08-24 10:34 | Outpatient (BNVA) | payer OTHER, SELFPAY | PROVIDERS: Visit Provider Nurse Practitioner Women's Health | DX: Z01.419 Encounter for gynecological examination (general) (routine) without abnormal findings (principal) | CPT/HCPCS: 80053; 82306; 83036; 84443; 85025; 86705; 86706; 86709; 86803; 87340; 87624; 87806 ==

== ENCOUNTER → 2024-08-25 10:18 | Outpatient (BNVA) | payer OTHER, SELFPAY | PROVIDERS: Visit Provider Nurse Practitioner Women's Health | DX: Z01.419 Encounter for gynecological examination (general) (routine) without abnormal findings (principal) | CPT/HCPCS: 80061 ==

== ENCOUNTER 2025-02-13 14:29 | Inpatient (IN) | payer OTHER, SELFPAY ==
[2025-02-13 14:41] VITALS: BP 139/90; PULSE 88; RESP 14; TEMP 36.7; O2SAT 90
--- NOTE | 2025-02-13 14:44 | W.ED.PSYCHS ---
HPI - Psych General: Chief Complaint: Psychiatric Symptoms Stated Complaint: 96 Time Seen by Provider: 02/13/25 14:31 Source: patient Mode of arrival: ambulatory Limitations: no limitations History of Present Illness: Patient is a 29-year-old female here with her mother on a 96-hour hold. According to hold paperwork patient has disorganized thoughts and symptoms of psychosis as well as suicidal ideation. She reportedly has a history of schizophrenia and has been noncompliant with her medications. Patient's mother states that patient attempted to jump out of a moving vehicle several times. Affidavit states that patient is having paranoia, delusions has had a need for decreased sleep and food, has impaired perceptions of reality, having difficulty articulating thoughts and responses, and having visual disturbances and hallucinations. MD complaint: altered mental status Onset (ago): day(s) History of same: Yes Relieving factors: medication Context: not taking psychiatric medications Associated psychiatric symptoms: auditory hallucinations, visual hallucinations and delusions Associated symptoms: Reports auditory hallucinations, visual hallucinations and suicidal ideation; Deny homicidal ideation Treatments prior to arrival: placed on mental health hold If self harm: admits thoughts of self harm Related Data Home Medications ?Medication ?Instructions ?Recorded ?Confirmed No Known Home Medications 08/24/24 08/24/24 Allergies Allergy/AdvReac Type Severity Reaction Status Date / Time Sulfa (Sulfonamide Allergy ALGY-Rash Verified 08/24/24 07:52 Antibiotics) Review of Systems Const: Denies: fever(s) or chills Card: Denies: chest pain, palpitations, lightheadedness or syncope Resp: Denies: dyspnea GI: Denies: abdominal pain, nausea, vomiting or diarrhea Skin/Breast: Denies: rash Neuro: Denies: headache(s), numbness in extremities, weakness in extremities, sensory changes or difficulty walking Psych: Reports: paranoia, visual hallucinations, auditory hallucinations and suicidal ideation; Denies: homicidal ideation [facility] PFSH: Family History Mother Hyperlipidemia Hypertension Social History Smoking and tobacco/nicotine status: never used tobacco/nicotine Physical Exam Const: COMMON NORMALS: no acute distress, average body habitus, patient oriented x3, no limitations, healthy appearing, alert and well nourished GENERAL APPEARANCE: cooperative Resp: COMMON NORMALS: normal respiratory effort and clear to auscultation bilaterally AUSCULTATION: clear to auscultation bilaterally Cardio: COMMON NORMALS: regular rate and regular rhythm RATE: regular rate RHYTHM: regular rhythm Neuro: COMMON NORMALS: patient oriented x3 SENSORIUM/ORIENTATION: Yes alert Psych: COMMON NORMALS: mental status grossly normal, cooperative, normal affect, activity/motor behavior normal, denies hallucinations and denies homicidal ideation APPEARANCE: Yes grossly normal ATTITUDE: Yes calm ACTIVITY/MOTOR BEHAVIOR: No psychomotor agitation and Yes Avoids eye contact (attititude/behavior) SPEECH: Yes slow THOUGHT PROCESS: disorganized and Illogical thought process present MEMORY/COGNITION: Yes memory grossly impaired and Yes cognition grossly impaired INSIGHT: Limited insight present (Psych) JUDGEMENT: Limited judgement present (Psych) Skin: COMMON NORMALS: no rashes or lesions noted GENERAL SKIN EXAM: no rashes or lesions noted Course Consultations: Consultation #1: Dr. Siddiqui-accepts to NPU Vital Signs: Vital signs: Vital Signs Temperature 98.0 F 02/13/25 14:41 Pulse Rate 88 02/13/25 14:41 Respiratory Rate 14 02/13/25 14:41 Blood Pressure 139/90 02/13/25 14:41 Pulse Oximetry 90 02/13/25 14:41 MDM - Psych Medical Decision Making Patient is a 29-year-old female with a history of schizophrenia here after she stopped being compliant with her medications. She is acutely psychotic and was placed on a 96-hour hold prior to her emergency department visit. She has been cleared medically and will be admitted to NPU to Dr. Siddiqui. Medical Records I reviewed the patient's medical records. Lab Data I reviewed the patient's lab results. 02/13/25 14:48 02/13/25 14:48 Laboratory Results WBC 6.21 10^3/uL (3.29-11.43) 02/13/25 14:48 RBC 4.35 10^6/uL (3.85-5.65) 02/13/25 14:48 Hgb 12.90 g/dL (11.27-16.99) 02/13/25 14:48 Hct 38.0 % (36-47) 02/13/25 14:48 MCV 87.4 fl (85-98) 02/13/25 14:48 MCH 29.7 pg (27-33) 02/13/25 14:48 MCHC 33.9 g/dL (30-55) 02/13/25 14:48 RDW 12.1 % (12.1-15.1) 02/13/25 14:48 Plt Count 290 10^3/cmm (157-399) 02/13/25 14:48 MPV 8.6 fL (7.4-10.4) 02/13/25 14:48 Neut % (Auto) 62.6 % 02/13/25 14:48 Lymph % (Auto) 27.9 % 02/13/25 14:48 Anson % (Auto) 6.4 % 02/13/25 14:48 Eos % (Auto) 1.4 % 02/13/25 14:48 Baso % (Auto) 1.4 % 02/13/25 14:48 Neut # (Auto) 3.88 10^3/uL (1.8-7.7) 02/13/25 14:48 Lymph # (Auto) 1.7 10^3/uL (0.8-4.8) 02/13/25 14:48 Anson # (Auto) 0.4 10^3/uL (0.2-0.9) 02/13/25 14:48 Eos # (Auto) 0.1 10^3/uL (0.0-0.8) 02/13/25 14:48 Baso # (Auto) 0.1 10^3/uL (0.0-0.1) 02/13/25 14:48 Nucleated RBC % (auto) 0 % 02/13/25 14:48 Nucleated RBCs # 0.0 /100WBC 02/13/25 14:48 Sodium 140 mmol/L (136-145) 02/13/25 14:48 Potassium 3.8 mmol/L (3.5-5.1) 02/13/25 14:48 Chloride 104 mmol/L (98-107) 02/13/25 14:48 Carbon Dioxide 25 mmol/L (22-29) 02/13/25 14:48 Anion Gap 14.8 (5-19) 02/13/25 14:48 BUN 9 mg/dL (6-20) 02/13/25 14:48 Creatinine 0.7 mg/dL (0.5-0.9) 02/13/25 14:48 GFR Calculation 97.6 mL/min (90-130) 02/13/25 14:48 Glucose 120 mg/dL (65-115) H 02/13/25 14:48 Calculated Osmolality 290 mOsm/kg (285-295) 02/13/25 14:48 Calcium 9.3 mg/dL (8.5-10.5) 02/13/25 14:48 Total Bilirubin 0.4 mg/dL (0.15-1.2) 02/13/25 14:48 AST 12 U/L (0-32) 02/13/25 14:48 ALT 10 U/L (0-33) 02/13/25 14:48 Alkaline Phosphatase 44 U/L (35-105) 02/13/25 14:48 Total Protein 7.5 g/dL (6.6-8.7) 02/13/25 14:48 Albumin 4.8 g/dL (3.5-5.2) 02/13/25 14:48 Globulin 2.7 g/dL (1.3-4.6) 02/13/25 14:48 HCG, Qual Negative (Negative) 02/13/25 14:48 Salicylates < 0.3 mg/dL (3-10) L 02/13/25 14:48 Urine Opiates Screen Negative ng/mL (Negative) 02/13/25 15:03 Acetaminophen < 5.0 ug/mL (10-30) L 02/13/25 14:48 Ur Barbiturates Screen Negative ng/mL (Negative) 02/13/25 15:03 Ur Phencyclidine Scrn Negative ng/mL (Negative) 02/13/25 15:03 Ur Amphetamines Screen Negative ng/mL (Negative) 02/13/25 15:03 U Benzodiazepines Scrn Negative ng/mL (Negative) 02/13/25 15:03 Urine Cocaine Screen Negative ng/mL (Negative) 02/13/25 15:03 U Marijuana (THC) Screen Negative ng/mL (Negative) 02/13/25 15:03 Ethyl Alcohol < 10 mg/dL (0-10) 02/13/25 14:48 No radiology studies performed this visit Discharge Plan Discharge Patient Disposition: Admitted As Inpatient Clinical Impression: Acute psychosis Condition: Stable Coding Level of Care Code ED Calibration Technician for Nimco Jeffrey
[2025-02-13 14:56] LABS: Hematocrit 38.0 % (36-47); Hemoglobin 12.90 g/dL (11.27-16.99); Mean Corpuscular HGB Conc 33.9 g/dL (30-55); Mean Corpuscular Hemoglobin 29.7 pg (27-33); Mean Corpuscular Volume 87.4 fl (85-98); Nucleated Red Blood Cells % 0 %; Platelet Count 290 10^3/cmm (157-399); Red Blood Count 4.35 10^6/uL (3.85-5.65); White Blood Count 6.21 10^3/uL (3.29-11.43)
--- NOTE | 2025-02-13 15:03 | PC.NURSE ---
PATIENT SENT EARRINGS HOME WITH MOTHER.
--- NOTE | 2025-02-13 15:05 | PC.NURSE ---
Pt was read her 96 hour hold rights. Security was present
[2025-02-13 15:11] LABS: Alanine Aminotransferase 10 U/L (0-33); Albumin Level 4.8 g/dL (3.5-5.2); Alkaline Phosphatase 44 U/L (35-105); Anion Gap 14.8 (5-19); Aspartate Amino Transferase 12 U/L (0-32); Blood Urea Nitrogen 9 mg/dL (6-20); Calcium 9.3 mg/dL (8.5-10.5); Carbon Dioxide 25 mmol/L (22-29); Chloride 104 mmol/L (98-107); Creatinine Clr Calc Pharmacy 105.4306; Globulin 2.7 g/dL (1.3-4.6); Glucose 120 mg/dL (65-115); Osmolality Calculated 290 mOsm/kg (285-295); Potassium 3.8 mmol/L (3.5-5.1); Sodium 140 mmol/L (136-145); Total Protein 7.5 g/dL (6.6-8.7)
[2025-02-13 15:12] LABS: Acetaminophen < 5.0 ug/mL (10-30); Alcohol Level < 10 mg/dL (0-10); HCG, Serum Qual Negative (Negative); Salicylate < 0.3 mg/dL (3-10)
[2025-02-13 15:22] LABS: PCP Screen Urine Negative (Negative)
[2025-02-13 15:34] VITALS: PULSE 88; O2SAT 94
[2025-02-13 16:24] VITALS: BP 124/77; PULSE 68; RESP 18; TEMP 37.3; O2SAT 100
[2025-02-13 21:59] VITALS: BP 115/72; PULSE 65; RESP 16; TEMP 37.1; O2SAT 99
[2025-02-14 06:00] VITALS: BP 115/72; PULSE 70; RESP 17; TEMP 37; O2SAT 98
[2025-02-14 14:00] VITALS: BP 107/66; PULSE 67; RESP 16; TEMP 36.8; O2SAT 100
--- NOTE | 2025-02-14 16:04 | P.NPUHP_ITS ---
Providers/Chief Complaint 2 Admitting Physician: Marco Siddiqui MD Primary Care Provider: [employer] Chief Complaint: 96 HPI NPU History of Present Illness Mandi Solano is a 29 year old female previously diagnosed with schizophrenia who presented to the emergency department on a 96-hour hold with supportive affidavits from the biological mother. The patient was admitted to the neuropsychiatric unit for further evaluation and treatment. 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 She reports that she has been having more paranoia and reports that she feels strongly that other people are trying to harm her. She reports that she has been having increased problems with memory and reports that she has had more intrusive thoughts and magical thinking. She had reported that she feels as if there is some noise in her head and reports that she struggles with being able to focus on what people are telling her. She endorses that she has had some unusual perceptions and states that she has indeed attempted to jump out of a moving vehicle several times out of fear. She reports that she had previously been treated with Abilify intramuscularly but reported that it was too strong and reported that she had excessive drooling and did not wish to take the injection anymore. She had also reported that she had been tried on Invega intramuscularly as well but reported that she had felt more fatigued and worse on that medication. She denies any thoughts of hurting herself or others despite having endorsed feeling more hopeless. She reports that she has struggled with maintaining self-care often not eating and reports weight loss and struggles with taking care of herself including showering. She denies any ideas of thought insertion or thought broadcasting. She denied any manic symptoms. She denied any symptoms currently of depression. She reports that she had gone nearly 16 months without any treatment with an antipsychotic agent and reported having a recent breakdown in her ability to function over the last month. Past psychiatric history: She reports 2 previous inpatient hospitalizations 1 as an adolescent for depression and most recently in June 2023 for psychosis. She had previously received treatment through [facility] outpatient clinic but none in the last year. Previous medication trials include Invega and Abilify. She is currently not receiving any psychotherapy services. Substance abuse history: She had reported having used ecstasy at significant amounts for 6 months around the age of 13. She had reported previous trials on various drugs including alcohol and marijuana. She had reported some inpatient substance abuse treatment at the age of 13 for alcohol use. She currently denies any alcohol use. Medical history: None Surgical history: None Allergies: No known drug allergies Legal history: None Family psychiatric history: She has a half sister with a history of bipolar disorder, she reports her mother and father both been diagnosed with anxiety and depression. Current medications: None Social history: She has no history of developmental problems. She was born in [place] and raised by her biological parents until they when she was young. She states that she went to go live with her mother. She has 2 half siblings as both her mother and father were remarried. She had reported that she ultimately obtained her diploma and earned a college degree in exercise and movement science in 2018. She reports having graduated from [employer]. She has never been and has no children. She had denied any history of sexual physical or emotional abuse. She currently lives with her mother in [place]. Excerpt from NPU Discharge summary from 07/21/23 below: Discharge Diagnosis (1) Unspecified psychosis: Status: Acute Reason for Visit Brief History: History of Present Illness Mandi Solano is a 28 year old female who presented to the emergency department accompanied by patient's mother with complaints of having some homicidal thoughts but denied any suicidal thoughts. The patient was admitted to the neuropsychiatric unit for further evaluation and treatment. The patient was a somewhat poor historian with initially very limited responses to open- ended questions. 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 She reports that in March 2023 she had had increased problems with her thoughts that had led her to eventually be removed from her job. She had reported that she was fortunate to not become homeless and as her family had apparently picked up the patient and moved her to [facility] where she currently resides with her mother. Patient throughout the interview had reported that she had been having unusual thoughts that appear to be philosophical questions. She reports that she had been having feelings towards another person and had questioned whether those feelings were real. She had reported that she had felt as if her thoughts were being broadcasted. She also reported that she felt as if there were was something inside of her head that was influencing her to act a certain way. She had denied having any suicidal thoughts but stated that at times she had intense visual images of hurting other people although she did not specify any particular person. She reports that she has at times struggled with falling asleep. She reports that she has been sleeping only 2 to 3 hours per night. She did not endorse any clear history of racing thoughts. She denied any history of increased goal-directed activity. She reports that she has been isolating herself. She had reported having chronic problems with socializing with others throughout her childhood and adulthood. She reported that she had felt as if she had betrayed herself but was on able to elaborate regarding this matter. She had reported that she had often questioning the reality of the statements that were being brought forth to her by some unknown entity in her head. She denies any drug or alcohol abuse. She had reported that she had used marijuana briefly a few weeks ago. Patient reports that she has been having problems with misinterpreting time and reported that she was having problems with her memory as well. Inpatient psychiatric history: Patient reports that she had been hospitalized at the age of 13 for depression. She was uncertain as to what medications or for what timeframe she was treated at but states that it was an at a facility in [facility]. Outpatient psychiatric history: None currently. She had made reference to having previously been on medications but stated that she did not remember. Allergies: Sulfa drugs Medical history: None reported Surgical history: None reported Current medications: None Legal history: None reported Drug and alcohol history: No history of inpatient or outpatient substance abuse history. He reported no history of stimulant or opiate use. Used marijuana before in the past. Family psychiatric history: Her half sister has a history of bipolar disorder. Her mother has a history of anxiety and depression per patient. Social history: Patient was born in [place] and resided with her biological parents until they . She states that she then went to live with her mother. She has 2 half siblings as her mother and father had both remarried. She reports that she had struggles in school both socially and academically. Despite this, she reports having obtained her diploma and earned a college degree in cardiac rehab dilatation. She had reported that he worked several years in this field having worked 2 years in [place] and having worked after that in [place] until March 2023. She is currently unemployed. She did not clearly identify her sexual preference. She reports she has never been and has no children. She reports having few friends. She did not endorse any history of abuse. Reason for Visit: S Hospital Course Hospital Course She slowly acclimated to the individual, group and milieu therapies provided.? She was started on her Abilify 5 mg which was titrated to 10 mg p.o. nightly for her psychosis. She was having some improvement. We did initiate Abilify Maintena 400 mg IM and she was given 13 more days of oral medication for the transition. We worked with her family to ensure adequate supports after discharge secondary to her level of impairment. She worked with the social work team for appropriate discharge planning and aftercare. She was able contract for safety outside the hospital prior to discharge.? During the hospitalization, patient had routine laboratory studies which were within normal limits except for few outliers.? Additionally there was a general medical evaluation which was also within normal limits and revealed no new acute processes. At the time of discharge, she denied lethality and her psychosis was improving.? Mood and anxiety were well managed.? Patient endorsed a plan to avoid all drugs of abuse and follow-up with the aftercare recommendations of the treatment team.? Patient was evaluated and deemed to be absent credible lethality, and had achieved the maximum benefit from an inpatient hospitalization, so was discharged.? Meds NPU Home Medications ?Medication ?Instructions ?Recorded ?Confirmed ?Last Taken ?Type No Known Home Medications 08/24/2401/21 Unknown History Allergies Allergy/AdvReac Type Severity Reaction Status Date / Time Sulfa (Sulfonamide Allergy ALGY-Rash Verified 08/24/24 07:52 Antibiotics) PFSH NPU 2 PFSH: Family History Mother Hyperlipidemia Hypertension Social History Smoking and tobacco/nicotine status: never used tobacco/nicotine Mental Status Exam 2 MSE Comments: Patient is a casually dressed thin white female with good eye contact with no evidence of any abnormal involuntary motor movements tics or tremors appreciated. She was in moderate to severe distress. There was some evidence of psychomotor slowing. Her speech was monotone in quality and decreased in rate and productivity with increased speech latency and halting. Her gait appeared within normal limits. Her hygiene was fair. Her mood was described as ok. Her affect was blunted. Thought content: She denied suicidal or homicidal ideation. There was poverty of content. She denied thought broadcasting. She did appear to be responding to internal stimuli. She endorsed auditory hallucinations described as noise. She was alert and oriented to person place and time. Her registration was 2/3 and recall after 5 minutes was 0/3 immediate but 0 out of 3. Her insight is impaired. Her judgment is poor. Her impulse control appeared limited. Vitals/I&O/Wt Last Vital Signs Temp 98.2 F 02/14/25 14:00 Pulse 67 02/14/25 14:00 Resp 16 02/14/25 14:00 BP 107/66 02/14/25 14:00 Pulse Ox 100 02/14/25 14:00 O2 Del Method Room Air 02/14/25 14:00 Weight last 48 hrs Weight 54.431 kg Data NPU 02/13/25 14:48 02/13/25 14:48 A&P Assessment and plan 1. Schizophrenia: Plan: 29 year old female with likely schizophrenia without medications for many months currently endorsing paranoia, hallucinations and apathy over the last 3 months. She was agreeable to treatment with restarting oral Abilify to target psychosis. 1. Encourage individual, group and milieu therapy. 2. Recommend sober living treatment at the highest level of care to which the patient is willing to commit. 3. Continue q-15 minute checks for safety.? 4.? Abilify 10mg daily. 5.? Will attempt to gather collateral information. PDMP PDMP Reviewed: Not Reviewed Involuntary Hold Information 2 Hold Status: Legal Status: 96 Hour Hold Date/Time Hold Expires: 9 6^02/17/25@1440 96 Hour Hold: 96 Hour Involuntary Admission: Yes Attestations NPU 2 Medical Necessity Statement*: Inpatient hospitalization is medically necessary and deemed to be the clinically appropriate intervention at this time. Patient will be started on medications and these medications will be titrated as clinically indicated. Patient will be in the hospital for at least 2 midnights. The patient's likely length of stay is 5 to 7 days. Coding Level of Care Code Acute Code for [facility] Fwd Diagnoses Schizophrenia F20.9
[2025-02-14 19:47] VITALS: BP 112/73; PULSE 75; RESP 16; TEMP 37.1; O2SAT 98
[2025-02-15 05:58] VITALS: BP 108/67; PULSE 97; RESP 16; TEMP 37.1; O2SAT 98
[2025-02-15 14:00] VITALS: BP 102/55; PULSE 76; RESP 16; TEMP 37.3; O2SAT 98
--- NOTE | 2025-02-15 15:43 | P.NPUPN_ITS ---
Subjective NPU 2 Subjective: 29-year-old female with a history of psy chosis and PTSD admitted with auditory hallucinations, paranoia, and disorganized thinking. Patient had admitted having periods of mixed mood symptoms along with episodes of [place]. She had also reported episodes of depression in her lifetime. She reports that she had felt that her paranoia was lessening. She had continued to report having difficulties with speaking clearly stating that she had thoughts that were distracting to her. She had reported that she had been struggling with her work over the past few months with difficulties in concentration. She had reported having difficulties with staying focused and reported feeling tired. The patient was uncertain as to whether she had periods of psychosis even in the absence of her mood symptoms. She had reported that she often struggled with depression as well. She reported no side effects from her Abilify currently. She had reported no sleep disturbance last night. Mental Status Exam 2 MSE Comments: Patient is a casually dressed thin white female with good eye contact with no evidence of any abnormal involuntary motor movements tics or tremors appreciated. She was in mild distress. There was some evidence of psychomotor slowing. Her speech was monotone in quality and decreased in rate with some halting speech appreciated. Her gait appeared within normal limits. Her hygiene was fair. Her mood was described as allright. Her affect was blunted. Thought content: She denied suicidal or homicidal ideation. There was poverty of content. She denied thought broadcasting. She did appear to be responding to internal stimuli. She endorsed auditory hallucinations described as noise. She was alert and oriented to person place and time. Her insight is impaired. Her judgment is poor. Her impulse control appeared limited. There was evidence of apathy noted. Vitals/I&O/Wt Last Vital Signs Temp 99.1 F 02/15/25 14:00 Pulse 76 02/15/25 14:00 Resp 16 02/15/25 14:00 BP 102/55 02/15/25 14:00 Pulse Ox 98 02/15/25 14:00 O2 Del Method Room Air 02/15/25 14:00 Data NPU 02/13/25 14:48 02/13/25 14:48 A&P Assessment and plan 1. Schizophrenia: 2. Schizoaffective disorder, bipolar type: Plan: 29 year old female with likely schizophrenia without medications for many months currently endorsing paranoia, hallucinations and apathy over the last 3 months. She was agreeable to treatment with restarting oral Abilify to target psychosis. 1. Encourage individual, group and milieu therapy. 2. Recommend sober living treatment at the highest level of care to which the patient is willing to commit. 3. Continue q-15 minute checks for safety.? 4.? Abilify 10mg daily. 5.? Consider additional medication to target mood. PDMP PDMP Reviewed: Not Reviewed Involuntary Hold Information 2 Hold Status: Legal Status: 96 Hour Hold Date/Time Hold Expires: 9 6^02/17/25@1440 96 Hour Hold: 96 Hour Involuntary Admission: Yes Attestations NPU 2 Medical Necessity Statement*: Inpatient hospitalization is medically necessary and deemed to be the clinically appropriate intervention at this time. Patient will be started on medications and these medications will be titrated as clinically indicated. The patient's likely length of stay is 5 to 7 days. Coding Level of Care Code Acute Code for [facility] Diagnoses Schizophrenia F20.9 Schizoaffective disorder, bipolar type F25.0
[2025-02-15 19:36] VITALS: BP 127/83; PULSE 76; RESP 16; TEMP 36.8; O2SAT 97
[2025-02-16 06:00] VITALS: BP 117/70; PULSE 81; RESP 18; TEMP 36.6; O2SAT 100
--- NOTE | 2025-02-16 12:40 | P.NPUPN_ITS ---
Subjective NPU 2 Subjective: 29-year-old female with a history of psy chosis and PTSD admitted with auditory hallucinations, paranoia, and disorganized thinking. The patient had reported that she was feeling much better today. She reported no side effects from the Abilify. She reported that her thoughts had been more clear. She had endorsed some residual paranoia but stated that she was feeling more hopeful about her treatment. She denied any depression today. She had been less isolative on the milieu. She appeared to be engaged in her self-care today. Mental Status Exam 2 MSE Comments: Patient is a casually dressed thin white female with good eye contact with no evidence of any abnormal involuntary motor movements tics or tremors appreciated. She was in mild distress today. There was a decrease overall in psychomotor slowing. Her speech was monotone in quality and decreased in rate with no halting speech appreciated today and increased spontaneity. Her gait appeared within normal limits. Her hygiene was fair. Her mood was described as okay. Her affect was blunted. Thought content: She denied suicidal or homicidal ideation. She denied thought broadcasting. She did not appear to be responding to internal stimuli. She denied auditory hallucinations today. She was alert and oriented to person place and time. Her insight is improving. Her judgment is improving. Her impulse control appears better. There was evidence of apathy noted. Vitals/I&O/Wt Last Vital Signs Temp 97.9 F 02/16/25 06:00 Pulse 81 02/16/25 06:00 Resp 18 02/16/25 06:00 BP 117/70 02/16/25 06:00 Pulse Ox 100 02/16/25 06:00 O2 Del Method Room Air 02/16/25 06:00 Data NPU 02/13/25 14:48 02/13/25 14:48 A&P Assessment and plan 1. Schizophrenia: 2. Schizoaffective disorder, bipolar type: Plan: 29 year old female with likely schizophrenia without medications for many months currently endorsing paranoia, hallucinations and apathy over the last 3 months. She was agreeable to treatment with restarting oral Abilify to target psychosis. 1. Encourage individual, group and milieu therapy. 2. Recommend sober living treatment at the highest level of care to which the patient is willing to commit. 3. Continue q-15 minute checks for safety.? 4.? Abilify 10mg daily, patient showing improvement after 3 days already. 5.? Consider additional medication to target mood. PDMP PDMP Reviewed: Not Reviewed Involuntary Hold Information 2 Hold Status: Legal Status: 96 Hour Hold Date/Time Hold Expires: 9 6^02/17/25@1440 96 Hour Hold: 96 Hour Involuntary Admission: Yes Attestations NPU 2 Medical Necessity Statement*: Inpatient hospitalization is medically necessary and deemed to be the clinically appropriate intervention at this time. Patient will be started on medications and these medications will be titrated as clinically indicated. The patient's likely length of stay is 2-4 days. Coding Level of Care Code Acute Code for [facility] Fwd Diagnoses Schizophrenia F20.9 Schizoaffective disorder, bipolar type F25.0
[2025-02-16 14:00] VITALS: BP 123/82; PULSE 87; RESP 16; TEMP 37.2; O2SAT 99
[2025-02-16 20:11] VITALS: BP 125/82; PULSE 75; RESP 18; TEMP 36.7; O2SAT 99
[2025-02-17 06:00] VITALS: BP 119/76; PULSE 79; RESP 18; TEMP 36.9; O2SAT 99
--- NOTE | 2025-02-17 11:38 | W.PM.NPUPNS ---
Subjective NPU Subjective: 29-year-old female with a history of psychosis, schizophrenia, r/o schizoaffective disorder and PTSD admitted with auditory hallucinations, paranoia, and disorganized thinking. The patient continued to appear distracted by her thoughts today. She was tearful during the interview and reported that she was feeling confused. She had stated that she was worried about her past actions. She had reported some feelings of guilt and stated that life is tough . She had reported struggles with making decisions. She had continued to report that her thoughts were jumbled and endorsed having numerous thoughts in her head. She had denied having any thoughts of hurting herself at this time. She continued to report having problems with trusting others. Mental Status Exam MSE Comments: Patient is a casually dressed thin white female with good eye contact with no evidence of any abnormal involuntary motor movements tics or tremors appreciated. She was in moderate to severe distress today. There was considerable psychomotor slowing. Her speech was monotone in quality and decreased in rate with the presence of halting speech appreciated today.There was increase in speech latency. Her gait appeared within normal limits. Her hygiene was poor. Her mood was described as okay. Her affect was blunted and tearful at times. Thought content: She denied suicidal or homicidal ideation. She denied thought broadcasting but did allude to some thought insertion. There was evidence of viscous thinking. She did appear to be responding to internal stimuli. She was alert and oriented to person place and time. Her insight was limited. Her judgment appeared poor today Her impulse control appears limited. Vitals/I&O/Wt Last Vital Signs Temp 98.4 F 02/17/25 06:00 Pulse 79 02/17/25 06:00 Resp 18 02/17/25 06:00 BP 119/76 02/17/25 06:00 Pulse Ox 99 02/17/25 06:00 O2 Del Method Room Air 02/17/25 06:00 Data NPU 02/13/25 14:48 02/13/25 14:48 A&P Assessment and plan 1. Schizophrenia: 2. Schizoaffective disorder, bipolar type: Plan: 29 year old female with likely schizophrenia without medications for many months currently endorsing paranoia, hallucinations and apathy over the last 3 months. She was agreeable to treatment with restarting oral Abilify to target psychosis. 1. Encourage individual, group and milieu therapy. 2. Recommend sober living treatment at the highest level of care to which the patient is willing to commit. 3. Continue q-15 minute checks for safety.? 4.? Increase abilify to 15mg daily. 5.? Consider additional medication to target mood. PDMP PDMP Reviewed: Not Reviewed Involuntary Hold Information Hold Status: Legal Status: 96 Hour Hold Date/Time Hold Expires: 96^02/17/25@1440 96 Hour Hold: 96 Hour Involuntary Admission: Yes Attestations NPU Medical Necessity Statement*: Inpatient hospitalization is medically necessary and deemed to be the clinically appropriate intervention at this time. Patient will be started on medications and these medications will be titrated as clinically indicated. The patient's likely length of stay is 3-5 days. Coding Level of Care Code Acute Code for [facility] Fwd Diagnoses Schizophrenia F20.9 Schizoaffective disorder, bipolar type F25.0
[2025-02-17 14:00] VITALS: BP 129/71; PULSE 89; RESP 16; TEMP 36.9; O2SAT 99
--- NOTE | 2025-02-17 17:30 | PC.NURSE ---
Patient with mild TD observed. She has some facial and mouth movement observed. Patient is refusing her cogentin for this RN.
[2025-02-17 20:55] VITALS: BP 151/98; PULSE 89; RESP 18; TEMP 37.1; O2SAT 96
[2025-02-18 06:00] VITALS: BP 120/80; PULSE 97; RESP 18; TEMP 37.2; O2SAT 98
--- NOTE | 2025-02-18 10:19 | PC.NURSE ---
Patient in the courtyard with other peers for group. It was reported by APPRENTICESHIP REPRESENTATIVE that patient took the bin of snacks and tossed them over the wall of the court yard. When coming in the door patient states that felt good . This RN went to sit in hallway with patient. Patient is guarded. When asked if the patient was anxious she states are you anxious? Patient continues to deny SI/HI/AVH. Patient has periods where she will stop mid sentence forgetting what she was going to say. When asked patient why she through the snacks over the fence she verbalized something to the effect that she wanted to make sure the others got the snacks. I told her that there was no one over the fence to get the snacks and that they were essentially on the ground. Patient is refusing medication at this time. She is requesting to talk with the physician. Physician notified.
[2025-02-18 13:48] VITALS: BP 145/76; PULSE 102; RESP 15; TEMP 37.4; O2SAT 96
--- NOTE | 2025-02-18 14:48 | P.NPUPN_ITS ---
Subjective NPU 2 Subjective: 29-year-old female with a history of psy chosis, schizophrenia, r/o schizoaffective disorder and PTSD admitted with auditory hallucinations, paranoia, and disorganized thinking. The patient had signed into the hospital voluntarily. She had some bizarre behavior today as she had attempted and managed to throw a bin full of food over the wall outside and stated that she was curious where it was going. She had appeared very confused today stating that she had felt that other people were plotting to have her here in the hospital for an extended stay. She had reported that she was feeling tired. The patient had difficulties with managing her care today as she appeared at times to be staring off into space on the unit and walking without any clear purpose. She acknowledged that her thoughts were more jumbled. She continued to report having difficulties with trusting others. She had been compliant with her medication regimen. Mental Status Exam 2 MSE Comments: Patient is a casually dressed thin, white female with good eye contact with no evidence of any abnormal involuntary motor movements tics or tremors appreciated. She was in moderate to severe distress today. There was considerable psychomotor slowing. Her speech was monotone in quality and with continued presence of halting speech appreciated today. There was continued increase in speech latency. Her gait appeared within normal limits. Her hygiene was poor. Her mood was described as okay. Her affect was blunted Thought content: She denied suicidal or homicidal ideation. There was evidence of viscous thinking. She did appear to be responding to internal stimuli. She was alert and oriented to person place and time. Her insight was limited. Her judgment appeared poor today Her impulse control appears limited. Vitals/I&O/Wt Last Vital Signs Temp 99.3 F 02/18/25 13:48 Pulse 102 H 02/18/25 13:48 Resp 15 02/18/25 13:48 BP 145/76 02/18/25 13:48 Pulse Ox 96 02/18/25 13:48 O2 Del Method Room Air 02/18/25 06:00 Data NPU 02/13/25 14:48 02/13/25 14:48 A&P Assessment and plan 1. Schizophrenia: 2. Schizoaffective disorder, bipolar type: Plan: 29 year old female with likely schizophrenia without medications for many months currently endorsing paranoia, hallucinations and apathy over the last 3 months. She was agreeable to treatment with restarting oral Abilify to target psychosis. 1. Encourage individual, group and milieu therapy. 2. Recommend sober living treatment at the highest level of care to which the patient is willing to commit. 3. Continue q-15 minute checks for safety.? 4.? Continue abilify 15mg daily while moving dose to nighttime with patient reporting excess sedation. 5.? Consider additional medication to target mood. PDMP PDMP Reviewed: Not Reviewed Involuntary Hold Information 2 Hold Status: Legal Status: 96 Hour Hold Date/Time Hold Expires: Signed in 96 Hour Hold: 96 Hour Involuntary Admission: Yes Attestations NPU 2 Medical Necessity Statement*: Inpatient hospitalization is medically necessary and deemed to be the clinically appropriate intervention at this time. Patient will be started on medications and these medications will be titrated as clinically indicated. The patient's likely length of stay is 5-7 days. Coding Level of Care Code Acute Code for [facility] Diagnoses Schizophrenia F20.9 Schizoaffective disorder, bipolar type F25.0
--- NOTE | 2025-02-18 15:41 | PC.NURSE ---
Discussed with patients mom some of the behaviors that have been observed at home. Mom reports patient has had increased stress at work. That she has left work at mid day without clocking out and no clear reason why. Mom described a recent event of the patient handing her a debit card and stating its all debit, do you want the receipt? She said patient appeared confused as to what the debit card was used for. She reports increased paranoia stating that the patient states people are listening to them and watching them. She reports that the patient has been very depressed, not sleeping well (waking up throughout the night), not showering, and has been obsessive about her health for the past 2 years. She reports the patient has been excessively exercising after eating. Mom reports patient has a history of cutting while in [employer] school. She states the patient has never been on antidepressants despite having a couple admissions to psychiatric units. Mom verbalized a family history of patients sister being bipolar, mother having ADHD and unknown history with father. Mom reports patient has been talking off the wall saying people are gaslighting them, and is unable to follow through on some things and appears confused. Patient is currently in a relationship with another female. They have been in a long distance relationship for 1 year. Her girlfriend reports that patient was attempting to jump out of vehicle last week.
[2025-02-18 20:07] VITALS: BP 132/87; PULSE 99; RESP 17; TEMP 37.2; O2SAT 98
--- NOTE | 2025-02-18 21:20 | NUR.SHIFT ---
The reliability of her memory is often questionable.
[2025-02-19 06:00] VITALS: BP 113/63; PULSE 80; RESP 18; TEMP 37.2; O2SAT 97
--- NOTE | 2025-02-19 09:08 | NUR.SHIFT ---
Pt states that she slept pretty good last night. She denies anxiety and depression. No reports of SI/HI or hallucinations. No pain reported. She is calm and cooperative on assessment, but still seems confused and unsure.
--- NOTE | 2025-02-19 13:21 | P.NPUPN_ITS ---
Subjective NPU 2 Subjective: 29-year-old female with a history of psy chosis, schizophrenia, r/o schizoaffective disorder and PTSD admitted with auditory hallucinations, paranoia, and disorganized thinking. The patient had reported that she was feeling better. She continued to be distracted by her thoughts. She had reported that she was bored and reported having a good visit with her girlfriend and her mother yesterday. She had expressed interest in being able to go back to work soon. She had continued to report feeling worried that she was part of a plot that the rich and powerful had manifested against her. Mental Status Exam 2 MSE Comments: Patient is a casually dressed thin, white female with good eye contact with no evidence of any abnormal involuntary motor movements tics or tremors appreciated. She was in moderate to severe distress today. There was mild psychomotor retardation. Her speech was monotone in quality and with less halting speech but still some increase in speech latency. Her gait appeared within normal limits. Her hygiene was improving. Her mood was described as okay. Her affect remained blunted. Thought content: She denied suicidal or homicidal ideation. There was continued evidence of viscous thinking. She did appear to be responding to internal stimuli. She was alert and oriented to person, place, and time. Her insight was limited. Her judgment appeared poor today Her impulse control appears limited. Vitals/I&O/Wt Last Vital Signs Temp 98.9 F 02/19/25 06:00 Pulse 80 02/19/25 06:00 Resp 18 02/19/25 06:00 BP 113/63 02/19/25 06:00 Pulse Ox 97 02/19/25 06:00 O2 Del Method Room Air 02/19/25 06:00 Weight last 48 hrs Weight 56.472 kg Data NPU 02/13/25 14:48 02/13/25 14:48 A&P Assessment and plan 1. Schizophrenia: 2. Schizoaffective disorder, bipolar type: Plan: 29 year old female with likely schizophrenia without medications for many months currently endorsing paranoia, hallucinations and apathy over the last 3 months. She was agreeable to treatment with restarting oral Abilify to target psychosis. 1. Encourage individual, group and milieu therapy. 2. Recommend sober living treatment at the highest level of care to which the patient is willing to commit. 3. Continue q-15 minute checks for safety.? 4.? Continue abilify 15mg daily and patient to be given the abilify IM 400mg maintena today. 5.? Consider additional medication to target mood. PDMP PDMP Reviewed: Not Reviewed Involuntary Hold Information 2 Hold Status: Legal Status: 96 Hour Hold Date/Time Hold Expires: Signed in 96 Hour Hold: 96 Hour Involuntary Admission: Yes Attestations NPU 2 Medical Necessity Statement*: Inpatient hospitalization is medically necessary and deemed to be the clinically appropriate intervention at this time. Patient will be started on medications and these medications will be titrated as clinically indicated. The patient's likely length of stay is 3-5 days. Coding [facility] Diagnoses Schizophrenia F20.9 Schizoaffective disorder, bipolar type F25.0
[2025-02-19 14:00] VITALS: BP 108/67; PULSE 93; RESP 17; TEMP 37.2; O2SAT 97
[2025-02-19] MEDS: ARIPiprazole Maintena 400 MG IM (14:42)
[2025-02-19 19:56] VITALS: BP 120/77; PULSE 78; RESP 17; TEMP 37.1; O2SAT 100
[2025-02-20 06:00] VITALS: BP 109/66; PULSE 100; RESP 17; TEMP 37.4; O2SAT 98
--- NOTE | 2025-02-20 12:16 | W.PM.NPUPNS ---
Subjective NPU Subjective: 29-year-old female with a history of psychosis, schizophrenia, r/o schizoaffective disorder and PTSD admitted with auditory hallucinations, paranoia, and disorganized thinking. The patient had endorsed continuing to have intrusive thoughts. She had continued at times to appear preoccupied by her thoughts as she asked if the source of her intrusive thoughts were associated with inflammation. She had reported that she had felt better. She reported good sleep. She reported good motivation to return to work and stated that she was looking forward to getting started back into therapy. She had reported no side effects from her medication. Mental Status Exam MSE Comments: Patient is a casually dressed thin, white female with good eye contact with no evidence of any abnormal involuntary motor movements tics or tremors appreciated. Her hygiene was fair. She was in mild to moderate distress today. There was mild psychomotor retardation. Her speech was monotone in quality and with no halting speech but still diminished in rate. Her gait appeared within normal limits. Her mood was described as okay. Her affect remained blunted. Thought content: She denied suicidal or homicidal ideation. Her thought process continued to remain viscous. She did appear to be responding to be internally preoccupied though she denied visual hallucinations or auditory hallucinations at the time. There was continued evidence of parnaoia. She was alert and oriented to person, place, and time. Her insight was limited. Her judgment appeared poor today Her impulse control appears limited. Vitals/I&O/Wt Last Vital Signs Temp 99.3 F 02/20/25 06:00 Pulse 100 02/20/25 06:00 Resp 17 02/20/25 06:00 BP 109/66 02/20/25 06:00 Pulse Ox 98 02/20/25 06:00 O2 Del Method Room Air 02/20/25 06:00 Weight last 48 hrs Weight 56.472 kg Data NPU 02/13/25 14:48 02/13/25 14:48 A&P Assessment and plan 1. Schizophrenia: 2. Schizoaffective disorder, bipolar type: Plan: 29 year old female with likely schizophrenia without medications for many months currently endorsing paranoia, hallucinations and apathy over the last 3 months. She was agreeable to treatment with restarting oral Abilify to target psychosis. 1. Encourage individual, group and milieu therapy. 2. Recommend sober living treatment at the highest level of care to which the patient is willing to commit. 3. Continue q-15 minute checks for safety.? 4.? Continue abilify 15mg daily and patient to be given the abilify IM 400mg maintena given on 02/19/25. Monitor for EPS symptoms. 5. Patient will require temporary leave from work after discharge. PDMP PDMP Reviewed: Not Reviewed Involuntary Hold Information Hold Status: Legal Status: 96 Hour Hold Date/Time Hold Expires: Signed in 96 Hour Hold: 96 Hour Involuntary Admission: Yes Attestations NPU Medical Necessity Statement*: Inpatient hospitalization is medically necessary and deemed to be the clinically appropriate intervention at this time. Patient will be started on medications and these medications will be titrated as clinically indicated. The patient's likely length of stay is 3-5 days. Coding Level of Care Code Acute Code for [facility] Fwd Diagnoses Schizophrenia F20.9 Schizoaffective disorder, bipolar type F25.0
[2025-02-20 14:00] VITALS: BP 126/86; PULSE 93; RESP 15; O2SAT 97
[2025-02-20 19:56] VITALS: BP 119/81; PULSE 88; RESP 16; TEMP 36.8; O2SAT 96
[2025-02-21 06:00] VITALS: BP 99/54; PULSE 74; RESP 17; TEMP 37; O2SAT 98
[2025-02-21 14:00] VITALS: BP 131/87; PULSE 87; RESP 18; TEMP 37.3; O2SAT 99
--- NOTE | 2025-02-21 15:39 | P.NPUDS_ITS ---
Diagnoses at Discharge Discharge Diagnosis 1. Schizophrenia, unspecified type: 2. Schizoaffective disorder, bipolar type: Reason for Visit Reason for Visit: 96 Brief History: History of Present Illness Mandi Solano is a 29 year old female previously diagnosed with schizophrenia who presented to the emergency department on a 96-hour hold with supportive affidavits from the biological mother. The patient was admitted to the neuropsychiatric unit for further evaluation and treatment. 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 She reports that she has been having more paranoia and reports that she feels strongly that other people are trying to harm her. She reports that she has been having increased problems with memory and reports that she has had more intrusive thoughts and magical thinking. She had reported that she feels as if there is some noise in her head and reports that she struggles with being able to focus on what people are telling her. She endorses that she has had some unusual perceptions and states that she has indeed attempted to jump out of a moving vehicle several times out of fear. She reports that she had previously been treated with Abilify intramuscularly but reported that it was too strong and reported that she had excessive drooling and did not wish to take the injection anymore. She had also reported that she had been tried on Invega intramuscularly as well but reported that she had felt more fatigued and worse on that medication. She denies any thoughts of hurting herself or others despite having endorsed feeling more hopeless. She reports that she has struggled with maintaining self-care often not eating and reports weight loss and struggles with taking care of herself including showering. She denies any ideas of thought insertion or thought broadcasting. She denied any manic symptoms. She denied any symptoms currently of depression. She reports that she had gone nearly 16 months without any treatment with an antipsychotic agent and reported having a recent breakdown in her ability to function over the last month. Past psychiatric history: She reports 2 previous inpatient hospitalizations 1 as an adolescent for depression and most recently in June 2023 for psychosis. She had previously received treatment through [facility] outpatient clinic but none in the last year. Previous medication trials include Invega and Abilify. She is currently not receiving any psychotherapy services. Substance abuse history: She had reported having used ecstasy at significant amounts for 6 months around the age of 13. She had reported previous trials on various drugs including alcohol and marijuana. She had reported some inpatient substance abuse treatment at the age of 13 for alcohol use. She currently denies any alcohol use. Medical history: None Surgical history: None Allergies: No known drug allergies Legal history: None Family psychiatric history: She has a half sister with a history of bipolar disorder, she reports her mother and father both been diagnosed with anxiety and depression. Current medications: None Social history: She has no history of developmental problems. She was born in [place] and raised by her biological parents until they when she was young. She states that she went to go live with her mother. She has 2 half siblings as both her mother and father were remarried. She had reported that she ultimately obtained her diploma and earned a college degree in exercise and movement science in 2018. She reports having graduated from [employer]. She has never been and has no children. She had denied any history of sexual physical or emotional abuse. She currently lives with her mother in [place]. Excerpt from NPU Discharge summary from 07/21/23 below: Discharge Diagnosis (1) Unspecified psychosis: Status: Acute Reason for Visit Brief History: History of Present Illness Mandi Solano is a 28 year old female who presented to the emergency department accompanied by patient's mother with complaints of having some homicidal thoughts but denied any suicidal thoughts. The patient was admitted to the neuropsychiatric unit for further evaluation and treatment. The patient was a somewhat poor historian with initially very limited responses to open- ended questions. 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 She reports that in March 2023 she had had increased problems with her thoughts that had led her to eventually be removed from her job. She had reported that she was fortunate to not become homeless and as her family had apparently picked up the patient and moved her to [facility] where she currently resides with her mother. Patient throughout the interview had reported that she had been having unusual thoughts that appear to be philosophical questions. She reports that she had been having feelings towards another person and had questioned whether those feelings were real. She had reported that she had felt as if her thoughts were being broadcasted. She also reported that she felt as if there were was something inside of her head that was influencing her to act a certain way. She had denied having any suicidal thoughts but stated that at times she had intense visual images of hurting other people although she did not specify any particular person. She reports that she has at times struggled with falling asleep. She reports that she has been sleeping only 2 to 3 hours per night. She did not endorse any clear history of racing thoughts. She denied any history of increased goal-directed activity. She reports that she has been isolating herself. She had reported having chronic problems with socializing with others throughout her childhood and adulthood. She reported that she had felt as if she had betrayed herself but was on able to elaborate regarding this matter. She had reported that she had often questioning the reality of the statements that were being brought forth to her by some unknown entity in her head. She denies any drug or alcohol abuse. She had reported that she had used marijuana briefly a few weeks ago. Patient reports that she has been having problems with misinterpreting time and reported that she was having problems with her memory as well. Inpatient psychiatric history: Patient reports that she had been hospitalized at the age of 13 for depression. She was uncertain as to what medications or for what timeframe she was treated at but states that it was an at a facility in [facility]. Outpatient psychiatric history: None currently. She had made reference to having previously been on medications but stated that she did not remember. Allergies: Sulfa drugs Medical history: None reported Surgical history: None reported Current medications: None Legal history: None reported Drug and alcohol history: No history of inpatient or outpatient substance abuse history. He reported no history of stimulant or opiate use. Used marijuana before in the past. Family psychiatric history: Her half sister has a history of bipolar disorder. Her mother has a history of anxiety and depression per patient. Social history: Patient was born in [place] and resided with her biological parents until they . She states that she then went to live with her mother. She has 2 half siblings as her mother and father had both remarried. She reports that she had struggles in school both socially and academically. Despite this, she reports having obtained her diploma and earned a college degree in cardiac rehab dilatation. She had reported that he worked several years in this field having worked 2 years in [place] and having worked after that in [place] until March 2023. She is currently unemployed. She did not clearly identify her sexual preference. She reports she has never been and has no children. She reports having few friends. She did not endorse any history of abuse. Hospital Course Hospital Course She slowly acclimated to the individual, group and milieu therapies provided.? She was started on her Abilify 5 mg which was titrated to 10 mg p.o. nightly for her psychosis. She was having some improvement. We did initiate Abilify Maintena 400 mg IM and she was given 13 more days of oral medication for the transition. We worked with her family to ensure adequate supports after discharge secondary to her level of impairment. She worked with the social work team for appropriate discharge planning and aftercare. She was able contract for safety outside the hospital prior to discharge.? During the hospitalization, patient had routine laboratory studies which were within normal limits except for few outliers.? Additionally there was a general medical evaluation which was also within normal limits and revealed no new acute processes. At the time of discharge, she denied lethality and her psychosis was improving.? Mood and anxiety were well managed.? Patient endorsed a plan to avoid all drugs of abuse and follow-up with the aftercare recommendations of the treatment team.? Patient was evaluated and deemed to be absent credible lethality, and had achieved the maximum benefit from an inpatient hospitalization, so was discharged.? Hospital Course Hospital Course The patient had initially presented with significant psychomotor slowing and difficulties with increased distractibility and appeared to be responding to internal stimuli. She had reported that she had continued intrusive thoughts with some complaints of thought insertion. She reported that she had been without her antipsychotic medication for the most part of the year prior to her arrival here and stated that it had affected her ability to make decisions and concentrate particularly at work and at home. She had ultimately been restarted on Abilify oral and titrated up to a dose of 15 mg daily without any side effects. She was agreeable to taking Abilify Maintena at 400 mg IM on February 20, 2025 with a plan to follow-up with her outpatient provider or the crisis service to receive her next shot of Abilify on 03/20/2025. She was agreeable to maintaining oral use of Abilify for the next 10 days at that time she could discontinue this medication. I would strongly encouraged the patient have some time off of work to allow her to become more accustomed to the medications. During the hospitalization, the patient had routine laboratory studies which were within normal limits except for a few outliers.? Additionally, there was a general medical evaluation which was also within normal limits and revealed no new acute processes.? At the time of discharge, lethality was denied and psychosis was resolving.? Mood and anxiety were well managed.? The patient endorsed a plan to avoid all drugs of abuse and follow up with the aftercare recommendations of the treatment team.? The patient was evaluated and deemed to be absent credible lethality and had achieved the maximum benefit from an inpatient hospitalization, and so was discharged. ? Involuntary Hold Information Hold Status: Legal Status: 96 Hour Hold Date/Time Hold Expires: Signed in 96 Hour Hold: 96 Hour Involuntary Admission: Yes Mental Status Exam MSE Comments: Patient is a casually dressed thin, white female with good eye contact with no evidence of any abnormal involuntary motor movements tics or tremors appreciated. Her hygiene was fair. She was in mild to moderate distress today. There was mild psychomotor retardation. Her speech was monotone in quality with normal rate, rhythm and prosody. Her gait appeared within normal limits. Her mood was described as okay. Her affect appeared ross today. Thought content: She denied suicidal or homicidal ideation. Her thought process was linear and logical today. She did not appear to be responding to internal stimuli and she denied visual hallucinations or auditory hallucinations at the time. No overt paranoia was appreciated. She was alert and oriented to person, place, and time. Her insight was improving. . Her judgment appeared better and her impulse control was adequate today on discharge. Discharge Data Studies Completed and Pending: Laboratory Results WBC 6.21 10^3/uL (3.2 9-11.43) 02/13/25 14:48 RBC 4.35 10^6/uL (3.8 5-5.65) 02/13/25 14:48 Hgb 12.90 g/dL (11.27 -16.99) 02/13/25 14:48 Hct 38.0 % (36-47) 02/13/25 14:48 MCV 87.4 fl (85-98) 02/13/25 14:48 MCH 29.7 pg (27-33) 02/13/25 14:48 MCHC 33.9 g/dL (30-55) 02/13/25 14:48 RDW 12.1 % (12.1-15.1 ) 02/13/25 14:48 Plt Count 290 10^3/cmm (157 -399) 02/13/25 14:48 MPV 8.6 fL (7.4-10.4) 02/13/25 14:48 Neut % (Auto) 62.6 % 02/13/25 14:48 Lymph % (Auto) 27.9 % 02/13/25 14:48 Pershing % (Auto) 6.4 % 02/13/25 14:48 Eos % (Auto) 1.4 % 02/13/25 14:48 Baso % (Auto) 1.4 % 02/13/25 14:48 Neut # (Auto) 3.88 10^3/uL (1.8 -7.7) 02/13/25 14:48 Lymph # (Auto) 1.7 10^3/uL (0.8- 4.8) 02/13/25 14:48 Pershing # (Auto) 0.4 10^3/uL (0.2- 0.9) 02/13/25 14:48 Eos # (Auto) 0.1 10^3/uL (0.0- 0.8) 02/13/25 14:48 Baso # (Auto) 0.1 10^3/uL (0.0- 0.1) 02/13/25 14:48 Nucleated RBC % (a uto) 0 % 02/13/25 14:48 Nucleated RBCs # 0.0 /100WBC 02/13/25 14:48 Sodium 140 mmol/L (136-1 45) 02/13/25 14:48 Potassium 3.8 mmol/L (3.5-5 .1) 02/13/25 14:48 Chloride 104 mmol/L (98-10 7) 02/13/25 14:48 Carbon Dioxide 25 mmol/L (22-29) 02/13/25 14:48 Anion Gap 14.8 (5-19) 02/13/25 14:48 BUN 9 mg/dL (6-20) 02/13/25 14:48 Creatinine 0.7 mg/dL (0.5-0. 9) 02/13/25 14:48 GFR Calculation 97.6 mL/min (90-1 30) 02/13/25 14:48 Glucose 120 mg/dL (65-115 ) H 02/13/25 14:48 Calculated Osmolal ity 290 mOsm/kg (285- 295) 02/13/25 14:48 Calcium 9.3 mg/dL (8.5-10 .5) 02/13/25 14:48 Total Bilirubin 0.4 mg/dL (0.15-1 .2) 02/13/25 14:48 AST 12 U/L (0-32) 02/13/25 14:48 ALT 10 U/L (0-33) 02/13/25 14:48 Alkaline Phosphata se 44 U/L (35-105) 02/13/25 14:48 Total Protein 7.5 g/dL (6.6-8.7 ) 02/13/25 14:48 Albumin 4.8 g/dL (3.5-5.2 ) 02/13/25 14:48 Globulin 2.7 g/dL (1.3-4.6 ) 02/13/25 14:48 HCG, Qual Negative (Negati ve) 02/13/25 14:48 Salicylates < 0.3 mg/dL (3-10 ) L 02/13/25 14:48 Urine Opiates Scre en Negative ng/mL (N egative) 02/13/25 15:03 Acetaminophen < 5.0 ug/mL (10-3 0) L 02/13/25 14:48 Ur Barbiturates Sc reen Negative ng/mL (N egative) 02/13/25 15:03 Ur Phencyclidine S crn Negative ng/mL (N egative) 02/13/25 15:03 Ur Amphetamines Sc reen Negative ng/mL (N egative) 02/13/25 15:03 U Benzodiazepines Scrn Negative ng/mL (N egative) 02/13/25 15:03 Urine Cocaine Scre en Negative ng/mL (N egative) 02/13/25 15:03 U Marijuana (THC) Screen Negative ng/mL (N egative) 02/13/25 15:03 Ethyl Alcohol < 10 mg/dL (0-10) 02/13/25 14:48 Vitals: Last Vital Signs Temp 99.2 F 02/21/25 14:00 Pulse 87 02/21/25 14:00 Resp 18 02/21/25 14:00 BP 131/87 02/21/25 14:00 Pulse Ox 99 02/21/25 14:00 O2 Del Method Room Air 02/21/25 14:00 Discharge Plan Discharge Patient Disposition: Home Condition: Stable Prescriptions: New aripiprazole 15 mg tablet 15 mg PO DAILY 30 Days Qty: 30 1RF Abilify Maintena 400 mg suspension,extended rel syring 400 mg IM Q28D Qty: 1 1RF Rx Instructions: Next Due date 03/20/25. No Action No Known Home Medications Referrals: [facility] [Outside] - 02/24/25 7:30 am Referral Note: Assessment for services with Lesly Raya. Arrive 7:30am for an 8am appointment. [employer], [Occupational Therapist] Discharge Diet: Usual diet Discharge Activity: Resume usual activity Patient Instructions: Aripiprazole (By mouth), Opioid Safety, Patient Portal & George Instructions Discharge Attestations NPU Time Spent in Discharge Care*: less than 30 min Specific Discharge Activities: Specific discharge activities: educating patient, discussing with case making machine operator/social workers/dc planners and documenting/other paperwork Coding Level of Care Code Acute Code for Chg Fwd Diagnoses Schizophrenia, unspecified type F20.9 Schizophrenia type: unspecified Schizoaffective disorder, bipolar type F25.0
[2025-02-21 15:55] VITALS: BP 131/87; PULSE 87; RESP 18; TEMP 37.3; O2SAT 99
== END 2025-02-21 16:09 | disposition home or self-care (01) | DRG 885 ==
LOC: ER 15:02 → NP 15:35
PROVIDERS: Admitting Provider Psychiatry & Neurology Psychiatry; Emergency Provider Physician Assistant; Visit Provider Psychiatry & Neurology Psychiatry
DX: F25.0 Schizoaffective disorder, bipolar type (principal); Z88.1 Allergy status to other antibiotic agents; Z81.8 Family history of other mental and behavioral disorders
CPT/HCPCS: 36415; 80053; 80306; 80307; 84703; 85025; 96372; 97150; 97165; 99285; J9999